=== PATIENT | female | born 1990 | race Caucasian/White ===

== ENCOUNTER → 2019-09-16 10:51 | Outpatient (CLI) | payer OTHER, SELFPAY ==
[2019-09-15 10:21] VITALS: BMI 23.8
--- NOTE | 2019-09-16 10:56 | RAD_ITS ---
STUDY: X-RAY CHEST REASON FOR EXAM: Female, 29 years old. COUGH, SOB TECHNIQUE: PA and lateral COMPARISON: None. FINDINGS: There is mild asymmetric prominence of the markings in the left lower lobe. There is no demonstrated pleural abnormality. Normal size heart. Normal mediastinum and sanchez. Normal visualized pulmonary arteries. Normal visualized aortic arch and descending thoracic aorta. Normal visualized thoracic spine. Normal visualized ribs, clavicles, and shoulders. There is no demonstrated abnormality of the visualized soft tissue structures of the upper abdomen. RAD/Chest PA and Lateral IMPRESSION: Mild asymmetric prominence of the interstitial markings in left lower lobe. Mild focal inflammatory changes not excluded. Recommend clinical correlation and follow-up Electronically Signed: Jh Barr MD at 17:15 EDT , Service support ,
== END ==
PROVIDERS: Referring Provider Nurse Practitioner Family; Visit Provider Nurse Practitioner Family
DX: Z20.828 Contact with and (suspected) exposure to other viral communicable diseases (principal); J02.9 Acute pharyngitis, unspecified; R50.9 Fever, unspecified; R06.00 Dyspnea, unspecified; R05 Cough
CPT/HCPCS: 71046

== ENCOUNTER → 2019-09-19 14:28 | Outpatient (CLI) | payer OTHER, SELFPAY ==
[2019-09-15 10:21] VITALS: BMI 23.8
--- NOTE | 2019-09-19 14:35 | RAD_ITS ---
STUDY: X-RAY CHEST REASON FOR EXAM: Female, 29 years old. F/U CHEST XRAY FROM 3 DAYS AGO. PATIENT IS DYSPNEA/SOB FEVER AND CHILLS. PATIENT STATES HAD POSITIVE STREP THROAT RESULT. TECHNIQUE: PA and lateral views of the chest. COMPARISON: September 16, 2019 FINDINGS: Small irregular infiltrate of the left lower lobe reidentified, and has slightly increased in size. The remaining bilateral lung sweeney are clear. There is no demonstrated pleural abnormality. Normal size heart. Stable visualized osseous and mediastinal structures. RAD/Chest PA and Lateral IMPRESSION: 1. Small irregular infiltrate of the left lower lobe reidentified, and has slightly increased in size. Electronically Signed: Richard Brand MD at 14:55 EDT , Service support ,
== END ==
PROVIDERS: PCP Family Medicine; Referring Provider Family Medicine; Visit Provider Family Medicine
DX: R06.00 Dyspnea, unspecified (principal)
CPT/HCPCS: 71046

== ENCOUNTER → 2019-10-01 14:45 | Outpatient (CLI) | payer OTHER, SELFPAY ==
[2019-09-15 10:21] VITALS: BMI 23.8
--- NOTE | 2019-10-01 14:47 | CT_ITS ---
STUDY: CT CHEST WITH CONTRAST REASON FOR EXAM: Female, 29 years old. ABNORMAL CHEST X-RAY RADIATION DOSAGE (If Supplied By Facility): CTDIvol = ( 8.37 ) mGy, DLP = ( 224.77 ) mGycm TECHNIQUE: Transaxial imaging was performed following intravenous administration of IV 75mL Isovue-370. Multiplanar coronal and sagittal images were reformatted. Individualized dose optimization techniques were used for this CT. COMPARISON: Comparison is made with prior chest radiograph dated September 19, 2019. FINDINGS: The lungs are normal. There is no demonstrated pleural abnormality. Normal heart and pericardium. Normal mediastinum. Normal hilar regions. Normal enhanced pulmonary arteries. Normal aorta arch and descending thoracic aorta. Normal osseous structures. There is no demonstrated abnormality of the visualized upper abdomen. CT/Chest WITH Contrast IMPRESSION: Normal enhanced CT Chest examination. Electronically Signed: Calos Taylor, at 15:15 EDT , Service support ,
== END ==
PROVIDERS: PCP Family Medicine; Referring Provider Family Medicine; Visit Provider Family Medicine
DX: R93.89 Abnormal findings on diagnostic imaging of other specified body structures (principal)
CPT/HCPCS: 71260; Q9967

== ENCOUNTER 2019-11-08 12:00 | Day surgery (SDC) | payer OTHER, SELFPAY ==
[2019-11-08 08:15] VITALS: BMI 23.8
[2019-11-08] MEDS: Lactated Ringers 1,000 ML 125 ML IV (10:00)
[2019-11-08 12:35] VITALS: BP 95/82; PULSE 62; RESP 16; TEMP 37.4; O2SAT 100; BMI 23.1
[2019-11-08] MEDS: Doxycycline 100 MG CAPSULE PO (13:02)
[2019-11-08 13:05] LABS: Mean Corp Hgb Conc 33.3 g/dL (32-36); Mean Corpuscular Hgb 27.6 pg (27.0-32.0); Mean Corpuscular Volume 82.9 fL (81-99); Platelet Count 188 K/mm3 (150-450); RBC Distribution Width CV 13.2 % (11.6-14.6); RBC Distribution Width SD 39.8 fl (35.1-43.9); Red Blood Count 4.34 M/mm3 (4.2-5.4); White Blood Count 5.6 K/mm3 (4.4-11.0)
[2019-11-08 13:45] LABS: hCG Titer Quant., Serum 31140 mIU/mL (1-3)
--- NOTE | 2019-11-08 14:34 | HP.PCM_ITS ---
- Problem List (1) Missed Status: Acute Comment: discussed options plan d and c today. last ate at 7 am. 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 she has had some nause no cramping or bleeding. diagnosed with missed ab today on ultrasound. OB Visit Comments: GS seen measuring 5w3d collapsing with large subchorionic hemorrhage. pole seen 4 mm with fht seen, large yolk sac, no doppler flow. no adnexal masses small FF in cul de sac. confirmed demise. Menstrual History Last Menstral Period: 09/09/19 Reported LMP: definite Normal amount/duration: Yes On hormonal BC at conception: No hCG+: 10/07/19 Medical History Medical History: Negative: Diabetes, Hypertension, Heart disease, Auto-immune disorder, Kidney disease/UTI, Neurologic/epilepsy, Psychiatric, D epression/ depression, Hepatitis/liver disease, Varicosities/phlebitis, Thyroid dysfunction, Trauma/domestic violence, History of blood transfusions, D (Rh) Sensitized, Pulmonary (e.g.,TB,Asthma), Seasonal allergies, Drug/latex allergies/reactions, Breast, Weapons Mechanic surgery, Operations/hospitalizations, Anesthetic complications, History of abnormal pap, Uterine anomaly/jose, Infertility, Anti-retroviral treatment, Relevant family history, Other ACOG First Trimester First Trimester: Discussed ROS Const Reports system reviewed and no additional complaints, except as docu, Reports fatigue, Denies fever(s) Eyes Reports system reviewed and no additional complaints, except as docu ENT Reports system reviewed and no additional complaints, except as docu Card Denies chest pain, Denies shortness of breath Resp Reports system reviewed and no additional complaints, except as docu, Denies cough, Denies shortness of breath GI Denies abdominal pain, Reports nausea Reports system reviewed and no additional complaints, except as docu Musc Reports system reviewed and no additional complaints, except as docu Skin/Breast Reports system reviewed and no additional complaints, except as docu Neuro Yes system reviewed and no additional complaints, except as docu Psych Reports system reviewed and no additional complaints, except as docu Endo Reports system reviewed and no additional complaints, except as docu, Reports fatigue Exam Const General: healthy appearing, comfortable, no acute distress Orientation: alert [facility] Head: normal to inspection, normocephalic, atraumatic Ears: hearing grossly normal bilaterally, external ears normal Nose: external nose normal, nares normal Mouth: oral mucosae normal Teeth and gingiva: dentition normal Eyes General: appearance normal, both eyes and all related structures Neck Neck: normal visual inspection, no lymphadenopathy, supple Thyroid: thyroid normal Chest Chest palpation & inspection: normal inspection of the chest Breast inspection: normal inspection of the breasts, normal inspection of the axillae Breast palpation: normal palpation of the breasts, normal palpation of the axillae Resp Effort & Inspection: normal respiratory effort GI Inspection: normal to inspection Palpation: soft, no hepatosplenomegaly General: bladder normal to palpation External Female Exam: normal external appearance, normal appearance of the urethra Urethra: normal appearance of the urethra Speculum Exam - Vagina: normal appearance of the vagina, normal vaginal discharge Speculum Exam - Cervix: normal appearance of the cervix Bimanual Exam- Vagina & Uterus: normal bimanual exam, bladder normal to palpation, uterus non-tender, other Bimanual Exam- Adnexa, other: adnexae non-tender Skin General: no rashes or lesions noted Neuro Motor: muscle tone normal throughout, no movement abnormalities noted Extrem General: normal to inspection, full ROM Assessment & Plan Problems 1. Missed O02.1 discussed options plan d and c today. last ate at 7 am. florentino Plan After discussing the patient's diagnosis and treatment plan options, patient wishes to proceed with surgical management. I have discussed with the patient the risks, benefits, and alternatives of the procedure which include but are not limited to risks of anesthesia, bleeding, infection, possible damage to bowel, bladder, or surrounding vasculature which could lead to additional surgery to evaluate any complications. Patient agrees to procedure and wishes to proceed. ACOG/uptodate references given for additional information regarding procedure. Orders Orders: PAP I-G w/rfx hrHPV-Aptima Today Z12.4 Coding Level of Care Code Off vis,est,level 4 Diagnoses Missed O02.1 UPDATE- I have seen the patient and performed any clinically relevant updates to the history and physical exam. Katina Francisco MD
--- NOTE | 2019-11-08 15:00 | POC_PTH ---
PATIENT: BECCA MCCLURE LOC: [facility] U#:[id number] AGE/SX: ROOM: RE11/08/[address]: Dr. Katina Francisco MD : 1990 BED: DIS: 11/08/2019 SPEC #: [id number] RECD: 11/11/19 07:44 STATUS: IVAN LORETTA #: [id number] ANDREI: 11/08/19 15:[address]: Katina Francisco DEPT: SURGICAL PATHOLOGY RECD BY: Sayra Maldonado ENTERED: 11/11/19 09:13 SP TYPE: PROD CONC OTHR DR: Dr. Christina Augustine MD Tissues: Product of conception, NOS Procedures: Surgery Specimen Level IV HEADER OPERATION: Suction dilation and curettage PRE-OP DIAGNOSIS: Missed TISSUE SUBMITTED: Products of conception MICROSCOPIC DIAGNOSIS Endometrium, curettage: Chorionic villi, decidualized stroma and trophoblastic cells consistent with products of conception. AM:annalisa 11/12/19 MICROSCOPIC DESCRIPTION Slides are reviewed. GROSS DESCRIPTION Received in fixative is one container labeled with the patient's name and designated products of conception. The specimen consists of multiple irregular fragments of light thorne soft tissue that in aggregate measure 5 x 5 x 0.6 cm. parts are not grossly recognized. Film Composer portions are submitted in one cassette. / AM:annalisa 11/11/19 TC:5 CPT: 00873
--- NOTE | 2019-11-08 16:08 | OP.PCM_ITS ---
Problem List (1) Missed Status: Acute Comment: discussed options plan d and c today. last ate at 7 am. florentino Report of Operation Date of Procedure: 11/08/19 Pre-Operative Diagnosis: missed ab Post-Operative Diagnosis: same Surgery/Procedure Performed:: d and c Description of Surgical Findings:: 10 week dilation Type of Anesthesia:: Local MAC Special Medications: none Specimen's removed: POC Drains: none Estimated Blood Loss (mL): 100 Fluids Replaced: crystalloid Description of Procedure: Patient was taken to the operating room and placed under MAC local anesthesia. She was prepped and draped in the normal sterile fashion the dorsal lithotomy position. Bladder was drained of clear urine and anterior lip of the cervix was grasped and the uterus sounded to 10 cm. Cervix was progressively dilated to allow passage of a 9 mm suction curette. Progressive passes were made removing the retained products of conception without complication. Sharp curettage c onfirmed complete removal of the retained products. All instruments were removed from the vagina and excellent hemostasis was noted and the patient was taken to recovery in stable condition. Grafts/Implants Used: none - Complications none - Admit VTE Documentation VTE Present on Admission: No VTE Mechan Device Prophylaxis: SCD's Multi Select Codes - Urinary/Genital Urinary/Genital CPT Codes: 13356 Surg Trtmt missed Ab 1TM
--- NOTE | 2019-11-08 16:10 | DCINST_ITS ---
Discharge Diet: No Restrictions Discharge Activity: Return to Normal Activity, May Shower, May Take a Tub Bath Allergies/Adverse Reactions: Allergies No Known Allergies Allergy (Verified 11/08/19 12:30) Medications to take at Discharge docosahexaenoic acid 200 mg capsule mg PO 11/08/19 Primary Care Physician: Christina Augustine MD [Primary Care Provider] - Test Results: Test results from this visit will be discussed in further detail at your follow- up appointment, if applicable. Please Follow Up With: Katina Francisco MD - [phone]
[2019-11-08 16:15] VITALS: BP 117/64; BP 98/52; PULSE 69; RESP 16; TEMP 36.2; O2SAT 100
[2019-11-08 16:20] VITALS: BP 124/76; BP 98/52; PULSE 65; RESP 16; O2SAT 100
[2019-11-08 16:25] VITALS: BP 122/70; BP 98/52; PULSE 72; RESP 16; O2SAT 100
[2019-11-08 16:35] VITALS: BP 126/84; BP 98/52; PULSE 71; RESP 16; TEMP 36.6; O2SAT 100
[2019-11-08 17:54] VITALS: BP 121/68; BP 98/52; PULSE 65; RESP 18; TEMP 36.2; O2SAT 100
== END 2019-11-08 18:10 | disposition home or self-care (01) ==
LOC: SDC 12:02 → AC 12:03
PROVIDERS: PCP Family Medicine; Referring Provider Obstetrics & Gynecology; Visit Provider Obstetrics & Gynecology
PROC: (CPT 59820; principal; 2019-11-08 14:45)
DX: O02.1 Missed abortion (principal); E07.9 Disorder of thyroid, unspecified; I10 Essential (primary) hypertension; J45.909 Unspecified asthma, uncomplicated
CPT/HCPCS: 01965; 59820; 36415; 84702; 85027; 86850; 86900; 86901; 87635; 88305; 90384; G2023; J7120; J2405; J2790; U0003

== ENCOUNTER → 2019-11-08 12:50 | Outpatient (CLI) | payer OTHER, SELFPAY ==
[2019-11-08 08:15] VITALS: BMI 23.8
[2019-11-12 20:30] LABS: HPV Reflexed? NOT INDICATED
== END ==
PROVIDERS: PCP Family Medicine; Referring Provider Obstetrics & Gynecology; Visit Provider Obstetrics & Gynecology
DX: Z12.4 Encounter for screening for malignant neoplasm of cervix (principal)
CPT/HCPCS: 88175; G0145

== ENCOUNTER → 2019-11-18 18:29 | Outpatient (CLI) | payer OTHER, SELFPAY ==
[2019-11-08 12:35] VITALS: BMI 23.1
--- NOTE | 2019-11-18 18:34 | US_ITS ---
STUDY: ULTRASOUND OF THE FEMALE PELVIS - COMPLETE REASON FOR EXAM: Female, 29 years old. Bleeding. Recent DTC. Missed . LMP: Unknown. TECHNIQUE: Transabdominal and Transvaginal TECHNICAL QUALITY: Adequate. COMPARISON: None. FINDINGS: The uterus is anteverted and is in a midline position. The uterus measures 7.6 x 4.5 x 2.9 cm. Normal uterine cervix. Uterus appears septate The endometrium measures 2 mm in thickness, and is hyperechoic. There is trace fluid within the endometrial canal. There is no demonstrated myometrial mass. I.U.D. - The patient does not have an I.U.D. The right ovary is visualized. The right ovary measures 3.5 x 2.5 x 1.8 cm. There is no 1 cm dominant follicle. There is no visualized right adnexal mass or complex lesion. There is normal arterial and normal venous vascularity. The left ovary is visualized. The left ovary measures 2.8 x 2.5 x 1.5 cm. There is no left ovarian cyst or ovarian mass. Is 1.4 x 1.0 x 0.5 cm dominant follicle. There is normal arterial and normal venous vascularity. There is no fluid in the cul-de-sac. The pre void volume of the bladder was 716 ml. The urinary bladder appears grossly normal. Polycystic ovary disease: No. US/Pelvic (Non ) IMPRESSION: 1. Septate uterus with minimal fluid in the endometrial canal. There is no other abnormality. 2. Normal ovaries. Electronically Signed: Deven Mariano DO at 22:10 EDT Tel [phone], Service support ,
--- NOTE | 2019-11-18 18:44 | US_ITS ---
STUDY: ULTRASOUND OF THE FEMALE PELVIS - COMPLETE REASON FOR EXAM: Female, 29 years old. Bleeding. Recent DTC. Missed . LMP: Unknown. TECHNIQUE: Transabdominal and Transvaginal TECHNICAL QUALITY: Adequate. COMPARISON: None. FINDINGS: The uterus is anteverted and is in a midline position. The uterus measures 7.6 x 4.5 x 2.9 cm. Normal uterine cervix. Uterus appears septate The endometrium measures 2 mm in thickness, and is hyperechoic. There is trace fluid within the endometrial canal. There is no demonstrated myometrial mass. I.U.D. - The patient does not have an I.U.D. The right ovary is visualized. The right ovary measures 3.5 x 2.5 x 1.8 cm. There is no 1 cm dominant follicle. There is no visualized right adnexal mass or complex lesion. There is normal arterial and normal venous vascularity. The left ovary is visualized. The left ovary measures 2.8 x 2.5 x 1.5 cm. There is no left ovarian cyst or ovarian mass. Is 1.4 x 1.0 x 0.5 cm dominant follicle. There is normal arterial and normal venous vascularity. There is no fluid in the cul-de-sac. The pre void volume of the bladder was 716 ml. The urinary bladder appears grossly normal. Polycystic ovary disease: No. US/Transvaginal Non- IMPRESSION: 1. Septate uterus with minimal fluid in the endometrial canal. There is no other abnormality. 2. Normal ovaries. Electronically Signed: Deven Mariano DO at 22:10 EDT Tel [phone], Service support ,
== END ==
PROVIDERS: PCP Family Medicine; Visit Provider Obstetrics & Gynecology
DX: O02.1 Missed abortion (principal); Q51.20 Other doubling of uterus, unspecified
CPT/HCPCS: 76830; 76856

== ENCOUNTER → 2019-12-09 16:58 | Outpatient (CLI) | payer OTHER, SELFPAY ==
[2019-12-09 17:25] LABS: Absolute Lymphocyte Count 1.68 X10^3/uL (0.83-4.51); Absolute Neutrophil Count 3.4 X10^3/uL (2.0-7.7); Basophil# 0.02 X10^3/uL; Basophil% 0.3 % (0-1); Eosinophil# 0.12 X10^3/uL; Eosinophils% 2.1 % (0-5); Hematocrit 39.4 % (37-47); Lymphocyte # 1.68 X10^3/ul (4.0); Lymphocyte % 29.3 % (19-41); Mean Corpuscular Hgb 26.7 pg (27.0-32.0); Mean Corpuscular Volume 80.9 fL (81-99); Monocyte# 0.55 X10^3/uL; Monocyte% 9.6 % (0-10); NRBC Flagged by Analyzer 0 % (0-5); Neutrophil # 3.35 X10^3/uL (2.7-7.7); Neutrophil % 58.4 % (47-70); Platelet Count 209 K/mm3 (150-450); RBC Distribution Width CV 13.6 % (11.6-14.6); Red Blood Count 4.87 M/mm3 (4.2-5.4); White Blood Count 5.7 K/mm3 (4.4-11.0)
[2019-12-09 18:01] LABS: hCG Titer Quant., Serum 3 mIU/mL (1-3)
== END ==
PROVIDERS: PCP Family Medicine; Referring Provider Obstetrics & Gynecology; Visit Provider Obstetrics & Gynecology
DX: O02.1 Missed abortion (principal); Z3A.00 Weeks of gestation of pregnancy not specified
CPT/HCPCS: 36415; 84702; 85025

== ENCOUNTER → 2019-12-17 14:49 | Outpatient (CLI) | payer OTHER, SELFPAY ==
[2019-12-12 16:08] VITALS: BMI 23.1
--- NOTE | 2019-12-17 14:50 | US_ITS ---
SONOHYSTEROGRAPHY Exam reason: Infertility Preprocedure transabdominal ultrasound evaluation was performed for assessment of anatomy and possible pathology. Performing physician: Dr. Francisco Procedure: The patient was supine on the table and legs in stirrups in a slight Trendelenburg position. The outer skin of the vagina and perineum were cleansed with sterile Betadine solution. This was followed by placement of a sterile speculum partially coated with Betadine petroleum jelly into the vagina and positioned to view the external cervical os on end. The internal linings of the cervix and vagina were cleansed with sterile Betadine solution again. The cervical opening was cannulated. The balloon was inflated once inside the uterine cavity and secured against the internal cervical os. This was followed by injection of normal saline into the endometrial cavity and the cervical canal. The endovaginal probe was inserted by the radioisotope technologist and multiple images were acquired. All elements of maximal sterile barrier technique were followed, to include US elements as applicable Comparison study: Pelvic ultrasound dated November 18, 2019 Findings: The uterus is septated. The uterus fills normally, with no evidence of contour abnormality, filling defect, septum, stricture, or mass. The endometrial lining is normal in appearance without the thickening or nodularity. The endometrial echo is striated and measures 5.4 mm. Cervical lining is also normal in appearance. No evidence of uterine or cervical masses demonstrated. US/SIS-SALINE INF SONOHYSTEROGRAM IMPRESSION: 1. Status post sonohysterogram of the uterus. 2. No demonstrated endometrial filling defect or uterine mass. Electronically Signed: Richard Brand MD at 20:10 EDT , Service support ,
== END ==
LOC: RAD 14:50 → US 14:53
PROVIDERS: PCP Family Medicine; Referring Provider Obstetrics & Gynecology; Visit Provider Obstetrics & Gynecology
DX: Z31.41 Encounter for fertility testing (principal)
CPT/HCPCS: 58340; 76831

== ENCOUNTER → 2019-12-30 09:59 | Outpatient (CLI) | payer OTHER, SELFPAY ==
[2019-12-12 16:08] VITALS: BMI 23.1
[2019-12-30 12:19] LABS: Thyroid Stim Hormone (TSH) 1.22 uIU/mL (0.358-3.74)
[2019-12-30 12:22] LABS: Rubella IgG 43.2 IU/mL
[2020-01-01 04:29] LABS: V-Zoster IgG (Immunity) 653 index (Immune >165)
== END ==
PROVIDERS: PCP Family Medicine; Referring Provider Obstetrics & Gynecology Reproductive Endocrinology; Visit Provider Obstetrics & Gynecology Reproductive Endocrinology
DX: Z01.83 Encounter for blood typing (principal); E02 Subclinical iodine-deficiency hypothyroidism; Z11.59 Encounter for screening for other viral diseases; Z11.8 Encounter for screening for other infectious and parasitic diseases
CPT/HCPCS: 36415; 84443; 86762; 86787; 86900; 86901

== ENCOUNTER → 2020-05-13 11:56 | Outpatient (CLI) | payer OTHER, SELFPAY ==
[2019-12-12 16:08] VITALS: BMI 23.1
[2020-05-13 15:21] LABS: hCG Titer Quant., Serum 1381 mIU/mL (1-3)
== END ==
PROVIDERS: PCP Family Medicine; Referring Provider Obstetrics & Gynecology Reproductive Endocrinology; Visit Provider Obstetrics & Gynecology Reproductive Endocrinology
DX: Z32.01 Encounter for pregnancy test, result positive (principal); E28.2 Polycystic ovarian syndrome
CPT/HCPCS: 36415; 84702

== ENCOUNTER → 2020-05-15 09:57 | Outpatient (CLI) | payer OTHER, SELFPAY ==
[2019-12-12 16:08] VITALS: BMI 23.1
[2020-05-15 11:18] LABS: hCG Titer Quant., Serum 3044 mIU/mL (1-3)
== END ==
PROVIDERS: PCP Family Medicine; Referring Provider Obstetrics & Gynecology Reproductive Endocrinology; Visit Provider Obstetrics & Gynecology Reproductive Endocrinology
DX: E28.2 Polycystic ovarian syndrome (principal); Z32.01 Encounter for pregnancy test, result positive
CPT/HCPCS: 36415; 84702

== ENCOUNTER 2020-06-17 15:18 | Emergency (ER) | payer OTHER, SELFPAY ==
[2019-12-12 16:08] VITALS: BMI 23.1
[2020-06-17 15:19] VITALS: BP 121/82; PULSE 86; PULSE 88; RESP 18; TEMP 36.7; O2SAT 98; BMI 25.2
--- NOTE | 2020-06-17 15:42 | ED.VIS.GEN ---
History of Present Illness Chief Complaint: Dizziness Informant: Patient, Significant Other Onset: Hours Context: Sudden Onset Timing: Intermittent Quality: Spinning sensation Location: Home Current Severity: - - No spitting with eyes Lids closed Maximum Severity: Severe - If patient opens eyelids and especially change in position Worsened by: Movement Relieved by: Nothing completely Associated Symptoms: Nausea and vomiting Narrative: Patient is a 29-year-old Ab2 (spontaneous) female who had surgery January 2024 uterine septum. She was seen by Dr. Eaton. She is presently under the care of Dr. Eaton. She states this morning she awoke to use the restroom. She felt slightly dizzy when she returned to bed. She has had several episodes of spinning when she opens her eyes and moves. This is associated with nausea and vomiting. She does report dry mouth and would like something to drink. She denies headache, double vision, blurred vision or loss of vision. She denies rhinorrhea, congestion postnasal drainage. She denies sore throat. She denies decreased hearing or ringing in her ears. She denies chest pain or shortness of breath. She denies blood in her emesis. She does have frequency without urgency or hematuria. There is no dysuria. She denies vaginal bleeding. She denies problems with her balance prior to the spinning sensation. She is on vitamins. She is on no other medication. Prior similar symptoms: No Recent Illness/Hospitalization: No - Past Medical History (1) Uterine anomaly Status: Acute Comment: suspect septum recommend SIS Past Medical History - Allergies and Home Meds Allergies/Adverse Reactions: Allergies No Known Allergies Allergy (Verified 06/17/20 15:53) Primary Care Physician: Christina Augustine MD [Primary Care Provider] - Prior records reviewed: Yes Surgical History: - - Removal septum uterus Lives: Spouse/ Significant Other Smoking Status: Never smoker Alcohol: Rare Drugs: None Review of Systems General: Denies: Chills, Fever, Malaise Eyes: Denies: Visual changes - bilaterally, Blurred Vision - bilaterally, Diplopia ENT: Denies: Rhinorrhea, Sore throat Cardiovascular: Denies: Chest pain, Palpitations Respiratory: Denies: Dyspnea, Cough, Dyspnea on exertion Gastrointestinal: Reports: Nausea, Vomiting. Denies: Abdominal pain, Diarrhea Genitourinary: Reports: Frequency. Denies: Dysuria, Hematuria Musculoskeletal: Denies: Myalgias, Arthralgias, Neck pain, Back pain Skin: Denies: Rash, Wounds Neurological: Denies: Headache, Weakness Endocrine: Denies: Polyuria, Polydipsia Physical Exam Vital Signs/Narrative: Vital Signs Temp Pulse Resp BP Pulse Ox 06/17/20 15:19 98.0 F 88 18 121/82 H 98 Inital Vital Signs reviewed: Yes General: Well nourished, Well developed, No Acute Distress Head: Normocephalic, Atraumatic Eyes: Perrl, EOMI ENT: Moist mucous membranes, No rhinorrhea, - - Abnormal eye movement even with eyes closed. Opening her eye lids reveals mild nystagmus at this time. There is no evidence of cerumen impaction. Neck: Supple, Nontender Cardiovascular: Regular rate, Regular rhythm, No murmurs, Normal S1, Normal S2 Respiratory: No distress, CTA bilaterally, Chest nontender Abdomen: Soft, Nontender, Nondistended, Normal bowel sounds Back: Nontender, Normal Inspection Extremities: Nontender, No edema Skin: Normal color, No rash Neurological: Alert, Oriented x3, Cranial nerves II-XII grossly intact, Normal Strength, Normal Sensation, Normal DTR, - - Cerebellar testing normal. Psychological: Normal affect, Normal Mood Diagnostic/Tx/Re-eval - Medical Decision Making Since history is suggestive of benign paroxysmal positional vertigo. Patient was medicated with IV Zofran. Will perform Alvin-Hallpike maneuver and if this reproduces her symptoms and there is nystagmus will perform Shira maneuver. Alvin-Hallpike maneuver was performed. Patient had nystagmus with initial upward deflection and horizontal deflection to the right. Her symptoms were worse with her head turned to the left. Shira maneuver was performed. Patient states if she lifted her left ankle only when she was in upright position she had mild vertigo. Patient was ambulated by nurse. She developed acute vertigo when she turned rapidly. Since benzodiazepines are considered category D and unsafe in we will treat with Antivert/meclizine which is safe in . ED Disposition - Plan for ED Patient: Disposition: Home or Assisted Living Diagnosis: Benign paroxysmal positional vertigo of left ear Instructions: ED BPV Vertigo Prescriptions: Meclizine HCl [Antivert] 25 mg PO TID #14 tab Transmission Status: Pending to [facility] Referrals: Christina Augustine MD [Primary Care Provider] - 3-5 Days if not improving
[2020-06-17] MEDS: Ondansetron 4 MG/2 ML Vial IV (15:52)
[2020-06-17] MEDS: Meclizine HCl 25 MG Tablet PO (17:02)
== END 2020-06-17 18:39 | disposition home or self-care (01) ==
PROVIDERS: Emergency Provider Emergency Medicine; PCP Family Medicine
DX: H81.12 Benign paroxysmal vertigo, left ear (principal); Q51.28 Other and unspecified doubling of uterus
CPT/HCPCS: 96374; 99284; A4216; J2405

== ENCOUNTER → 2020-07-31 16:57 | Outpatient (CLI) | payer OTHER, SELFPAY ==
[2020-07-31 14:20] VITALS: BMI 26.9
== END ==
PROVIDERS: PCP Family Medicine; Visit Provider Obstetrics & Gynecology
DX: O26.899 Other specified pregnancy related conditions, unspecified trimester (principal); R10.2 Pelvic and perineal pain; Z3A.00 Weeks of gestation of pregnancy not specified
CPT/HCPCS: 87070; 87086; 87088; 87205

== ENCOUNTER → 2020-08-14 17:34 | Outpatient (CLI) | payer OTHER, SELFPAY ==
[2020-08-14 16:11] VITALS: BMI 27.0
[2020-08-14 18:09] LABS: Glucose Challenge Gest 1H 50g 97 mg/dL (70-140)
== END ==
PROVIDERS: PCP Family Medicine; Visit Provider Obstetrics & Gynecology
DX: Z34.80 Encounter for supervision of other normal pregnancy, unspecified trimester (principal)
CPT/HCPCS: 36415; 82950

== ENCOUNTER → 2020-09-22 14:48 | Outpatient (CLI) | payer OTHER, SELFPAY ==
[2020-08-14 16:11] VITALS: BMI 27.0
[2020-09-11 10:25] VITALS: BMI 27.0
--- NOTE | 2020-09-22 14:49 | US_ITS ---
STUDY: SECOND AND THIRD TRIMESTER OBSTETRICAL ULTRASOUND REASON FOR EXAM: Female, 30 years old anatomy LMP: 04/14/2020. TECHNIQUE: Transabdominal and Transvaginal TECHNICAL QUALITY: Adequate. PRIOR ULTRASOUND: None. FINDINGS: There is a single intrauterine fetus. The fetus is in a variable presentation. There is demonstrated cardiac activity with a heart rate of 144 bpm. There is a normal amniotic fluid volume. The largest amniotic fluid pocket measures 2.5 cm x 5.1 cm. The amniotic fluid index (YANY) is within normal limits. The placenta is posterior in location and is not low lying. There are Grade 0 placental changes. The cervix measures 4.2 cm in length. The bilateral adnexal regions are normal. BIOMETRY: BPD: 5.18 cm: 21 weeks, 5 days HC: 20.84 cm: 22 weeks, 6 days AC: 19.27 cm: 23 weeks, 6 days FL: 4.28 cm: 23 weeks, 6 days CI: 68% FL/BPD: 83% FL/HC: FL/AC: 22% HC/AC: 1.08 age by current US: 22 weeks, 6 days. SOLEDAD by current US: 01/20/2021. Estimated weight: 621 grams, +/- 93 grams, 76 %. Age by LMP: 23 weeks, 0 days. SOLEDAD by LMP: 01/19/2021. ANATOMY: Gender: Female Cranium: Normal lateral ventricles. Normal choroid plexus. Normal cerebellum. Normal cisterna magna. Normal face, nose and lips. Chest: Normal 4-chamber heart. Abdomen/Pelvis: Normal diaphragm. Normal stomach. Normal abdominal wall. Normal cord insertion. Normal 3 vessel cord. Normal kidneys. Normal bladder. Spine: Normal cervical spine. Normal thoracic spine. Suboptimal imaging of the lumbar spine and sacrum due to positioning. Extremities: Normal bilateral upper extremities. Normal bilateral lower extremities. US/OB Anatomy Scan IMPRESSION: Single live uterine gestation with a mean gestational age of 22 weeks and 6 days. Suboptimal imaging of the lumbar spine and sacrum due to positioning. Electronically Signed: Calos Taylor MD at 10:32 EDT , Service support ,
== END ==
PROVIDERS: PCP Family Medicine; Referring Provider Obstetrics & Gynecology; Visit Provider Obstetrics & Gynecology
DX: Z34.80 Encounter for supervision of other normal pregnancy, unspecified trimester (principal)
CPT/HCPCS: 76805; 76817

== ENCOUNTER → 2020-10-09 13:15 | Outpatient (CLI) | payer OTHER, SELFPAY ==
[2020-10-09 10:04] VITALS: BMI 27.0
[2020-10-09 13:42] LABS: Amphetamine Urine VISTA NEGATIVE (<1000 ng/mL); Barbiturate Urine VISTA NEGATIVE (< 200 ng/mL); Benzodiazepine Urine VISTA NEGATIVE (< 200 ng/mL); Cocaine Urine VISTA NEGATIVE (< 300 ng/mL); Ecstacy Urine VISTA NEGATIVE (< 500 ng/mL); Methadone Urine VISTA NEGATIVE (< 300 ng/mL); PCP Urine VISTA NEGATIVE (< 25 ng/mL); THC Urine VISTA NEGATIVE (< 50 ng/mL); Vista UDS pH Range 7
== END ==
PROVIDERS: PCP Family Medicine; Visit Provider Obstetrics & Gynecology
DX: Z34.80 Encounter for supervision of other normal pregnancy, unspecified trimester (principal)
CPT/HCPCS: 80307

== ENCOUNTER → 2020-10-13 11:11 | Outpatient (CLI) | payer OTHER, SELFPAY ==
[2020-10-13 10:52] VITALS: BMI 27.0
[2020-10-13 11:38] LABS: Absolute Lymphocyte Count 0.93 X10^3/uL (0.83-4.51); Absolute Neutrophil Count 8.3 X10^3/uL (2.0-7.7); Basophil# 0.02 X10^3/uL; Basophil% 0.2 % (0-1); Eosinophil# 0.07 X10^3/uL; Eosinophils% 0.7 % (0-5); Hemoglobin 11.2 g/dL (12.0-15.0); Lymphocyte # 0.93 X10^3/ul (0.83-4.51); Lymphocyte % 9.1 % (19-41); Mean Corp Hgb Conc 32.9 g/dL (32-36); Mean Corpuscular Hgb 27.1 pg (27.0-32.0); Mean Corpuscular Volume 82.3 fL (81-99); Mean Platelet Vol. 9.6 fl (6.2-12.0); Monocyte% 6.8 % (0-10); NRBC Flagged by Analyzer 0 % (0-5); Neutrophil # 8.34 X10^3/uL (2.7-7.7); Neutrophil % 81.6 % (47-70); Platelet Count 233 K/mm3 (150-450); RBC Distribution Width CV 13.6 % (11.6-14.6); RBC Distribution Width SD 40.5 fl (35.1-43.9); Red Blood Count 4.13 M/mm3 (4.2-5.4); White Blood Count 10.2 K/mm3 (4.4-11.0)
[2020-10-13 12:05] LABS: ALB/GLOB Ratio 0.8 RATIO (0.9-2.4); AST(SGOT) 16 U/L (15-37); Alanine Aminotransfer ALT/SGPT 22 U/L (13-56); Alkaline Phosphatase 65 U/L (45-117); Anion Gap 5 (5-15); BUN 7 mg/dL (7-18); BUN/Creat Ratio 13.9 RATIO (10-20); Calcium,Total 9.2 mg/dL (8.5-10.1); Chloride 108 mmol/L (98-107); EST Glomerular Filtration Rate 154 mL/min (>60); Est Glom Filt Rate - Afr Amer 186 mL/min (>60); Globulin 3.7 g/dL (2.2-4.2); Glucose 83 mg/dL (74-106); Potassium 3.8 mmol/L (3.5-5.1); Protein, Total 6.7 g/dL (6.4-8.2); Sodium Level 139 mmol/L (136-145)
== END ==
PROVIDERS: PCP Family Medicine; Referring Provider Nurse Practitioner Women's Health; Visit Provider Nurse Practitioner Women's Health
DX: Z34.92 Encounter for supervision of normal pregnancy, unspecified, second trimester (principal); Z3A.25 25 weeks gestation of pregnancy
CPT/HCPCS: 36415; 80053; 85025

== ENCOUNTER → 2020-10-16 13:23 | Outpatient (CLI) | payer OTHER, SELFPAY ==
[2020-09-11 10:25] VITALS: BMI 27.0
[2020-10-13 10:52] VITALS: BMI 27.0
--- NOTE | 2020-10-16 13:25 | US_ITS ---
STUDY: SECOND AND THIRD TRIMESTER OBSTETRICAL ULTRASOUND - LIMITED REASON FOR EXAM: Female, 30 years old FU anatomy LMP: 04/14/2020. PRIOR ULTRASOUND: Comparison is made with prior study dated 09/22/2020. TECHNIQUE: Transabdominal TECHNICAL QUALITY: Adequate. FINDINGS: There is a single intrauterine fetus. The fetus is in a breech presentation. There is demonstrated cardiac activity with a heart rate of 144 bpm. There is a normal amniotic fluid volume. The largest amniotic fluid pocket measures 4.1 cm. The amniotic fluid index (YANY) is 13.9 cm. The placenta is fundal and posterior in location. There are Grade 0 placental changes. BIOMETRY: Age by LMP: 26 weeks, 3 days. SOLEDAD by LMP: 01/19/2021. The lumbar spine and sacrum were well visualized at this time. Gender: Female US/OB Limited (No Biometrics) IMPRESSION: Unremarkable appearance of the lumbar spine and sacrum. Electronically Signed: Calos Taylor MD at 15:40 EDT , Service support ,
== END ==
PROVIDERS: PCP Family Medicine; Referring Provider Obstetrics & Gynecology; Visit Provider Obstetrics & Gynecology
DX: O32.1XX0 Maternal care for breech presentation, not applicable or unspecified (principal); Z3A.17 17 weeks gestation of pregnancy
CPT/HCPCS: 76815

== ENCOUNTER → 2020-10-30 09:20 | Outpatient (CLI) | payer OTHER, SELFPAY ==
[2020-10-13 10:52] VITALS: BMI 27.0
[2020-10-30 10:08] LABS: Absolute Lymphocyte Count 0.86 X10^3/uL (0.83-4.51); Absolute Neutrophil Count 8.2 X10^3/uL (2.0-7.7); Basophil# 0.02 X10^3/uL; Basophil% 0.2 % (0-1); Eosinophil# 0.11 X10^3/uL; Eosinophils% 1.1 % (0-5); Hematocrit 32.3 % (37-47); Hemoglobin 10.8 g/dL (12.0-15.0); Lymphocyte # 0.86 X10^3/ul (0.83-4.51); Lymphocyte % 8.5 % (19-41); Mean Corp Hgb Conc 33.4 g/dL (32-36); Mean Corpuscular Hgb 27.3 pg (27.0-32.0); Mean Corpuscular Volume 81.8 fL (81-99); Mean Platelet Vol. 9.7 fl (6.2-12.0); Monocyte# 0.65 X10^3/uL; Monocyte% 6.4 % (0-10); NRBC Flagged by Analyzer 0 % (0-5); Neutrophil # 8.22 X10^3/uL (2.7-7.7); Neutrophil % 81.6 % (47-70); Platelet Count 229 K/mm3 (150-450); RBC Distribution Width CV 13.3 % (11.6-14.6); RBC Distribution Width SD 39.8 fl (35.1-43.9); Red Blood Count 3.95 M/mm3 (4.2-5.4); White Blood Count 10.1 K/mm3 (4.4-11.0)
[2020-10-30 10:46] LABS: Glucose Challenge Gest 1H 50g 104 mg/dL (70-140)
[2020-10-31 14:07] LABS: HCV Quant. RNA PCR HCV Not Detected IU/mL (.)
== END ==
PROVIDERS: Obstetrics & Gynecology; PCP Family Medicine; Referring Provider Obstetrics & Gynecology; Visit Provider Obstetrics & Gynecology
DX: O23.42 Unspecified infection of urinary tract in pregnancy, second trimester (principal); Z13.1 Encounter for screening for diabetes mellitus; Z3A.17 17 weeks gestation of pregnancy
CPT/HCPCS: 36415; 82950; 85025; 86850; 86900; 86901; 87086; 87088; 87522

== ENCOUNTER 2020-12-14 21:25 | Outpatient (CLI) | payer OTHER, SELFPAY ==
[2020-12-11 10:03] VITALS: BMI 30.1
[2020-12-14 21:38] VITALS: BP 125/65; TEMP 36.8; O2SAT 98
[2020-12-14 21:39] VITALS: PULSE 75; O2SAT 100
[2020-12-14 21:44] VITALS: PULSE 81; O2SAT 100
[2020-12-14 21:46] VITALS: BMI 31.8
[2020-12-14 21:49] VITALS: PULSE 83; O2SAT 100
--- NOTE | 2020-12-14 22:00 | OB.TRI.PN_ITS ---
Progress Notes Date of Service: 12/14/20 Progress Note: Patient presents for triage evaluation secondary to dizziness and vomitng FHT: 130 Moderate variability reactive no decelerations category I tracing [place]: irregular Contractions Assessment and plan: nausea vomiting dizziness given meclizine Reactive NST, re assuring maternal and status patient discharged to home to follow-up as scheudled. See problem list details for additional plan information. Charges/Coding Procedures Urinary/Genital 52xxx-59xxx: 61151-72 non-stress test Interp Assessment & Plan (1) Dizziness:
--- NOTE | 2020-12-14 22:00 | OB.TRI.PN ---
Progress Notes Date of Service: 12/14/20 Progress Note: Patient presents for triage evaluation secondary to dizziness and vomitng FHT: 130 Moderate variability reactive no decelerations category I tracing [place]: irregular Contractions Assessment and plan: nausea vomiting dizziness given meclizine Reactive NST, reassuring maternal and status patient discharged to home to follow-up as scheudled. See problem list details for additional plan information. Charges/Coding Procedures Urinary/Genital 52xxx-59xxx: 99197-22 non-stress test Interp Assessment & Plan (1) Dizziness:
[2020-12-14] MEDS: Meclizine HCl 25 MG Tablet PO (22:21)
[2020-12-14 22:30] LABS: Mucous, Urine 0 SEEN /hpf (<or=2+); Red Blood Cells-Urine 0 SEEN /hpf (0-5); White Blood Cells 0 SEEN /hpf (0-5)
[2020-12-14 22:35] LABS: Color, Urine Yellow (Yellow); Glucose, Dipstick Normal (Normal); Ketone-Dipstick 5 mg/dl (Negative); Leukocyte Esterase-Dipstick Negative /ul (Negative); Nitrite-Dipstick Negative (Negative); Occult Blood-Urine Negative /ul (Negative); Protein-Dipstick Negative (Negative); Specific Gravity, Urine 1.015 (1.002-1.030); Urine Bilirubin Dipstick Negative (Negative); Urine Clarity Sl. Cloudy (Clear); Urine Urobilinogen Normal (Normal)
[2020-12-14 22:40] LABS: Bacteria 1+ /hpf (None Seen); Squamous Epithelial Cells - UA 0-5 SEEN /hpf (5-10)
[2020-12-15] MEDS: Dextrose 5%-Lactated Ringers 1,000 ML 999 ML IV (00:10)
[2020-12-15] MEDS: Ondansetron 4 MG/2 ML Vial IV (00:18)
[2020-12-15] MEDS: 0.9% Saline Lock 10 ML Syringe IV (00:18)
[2020-12-15 00:24] VITALS: BP 120/59; PULSE 71; TEMP 36.6; O2SAT 98
[2020-12-15] MEDS: proMETHazine 25 MG Tablet PO (01:41)
[2020-12-15 01:50] LABS: Hematocrit 34.7 % (37-47); Hemoglobin 11.4 g/dL (12.0-15.0); Mean Corp Hgb Conc 32.9 g/dL (32-36); Mean Corpuscular Hgb 27.5 pg (27.0-32.0); Mean Corpuscular Volume 83.6 fL (81-99); Mean Platelet Vol. 10.1 fl (6.2-12.0); Platelet Count 201 K/mm3 (150-450); RBC Distribution Width SD 42.7 fl (35.1-43.9); Red Blood Count 4.15 M/mm3 (4.2-5.4); White Blood Count 13.5 K/mm3 (4.4-11.0)
[2020-12-15 02:04] LABS: Anion Gap 9 (5-15); BUN 6 mg/dL (7-18); Calcium,Total 8.8 mg/dL (8.5-10.1); Chloride 108 mmol/L (98-107); Creatinine, Serum 0.33 mg/dL (0.55-1.02); EST Glomerular Filtration Rate 248 mL/min (>60); Est Glom Filt Rate - Afr Amer 300 mL/min (>60); Estimated Creatinine Clearance 246.81 ml/min; Glucose 86 mg/dL (74-106); Potassium 3.2 mmol/L (3.5-5.1); Sodium Level 139 mmol/L (136-145)
[2020-12-15] MEDS: Potassium Chloride Oral Tablet 20 MEQ 40 MEQ PO (02:33)
== END 2020-12-15 03:05 | disposition home or self-care (01) ==
LOC: WPOUT 21:31 → WP 21:32
PROVIDERS: PCP Family Medicine; Visit Provider Obstetrics & Gynecology
DX: O26.899 Other specified pregnancy related conditions, unspecified trimester (principal); R11.2 Nausea with vomiting, unspecified; R42 Dizziness and giddiness; Z3A.00 Weeks of gestation of pregnancy not specified
CPT/HCPCS: 96361 ×3; 96374; 36415; 59025; 59050; 80048; 81001; 85027; 87086; 87088; A4216; J2405

== ENCOUNTER → 2020-12-21 09:38 | Outpatient (CLI) | payer OTHER, SELFPAY ==
[2020-12-21 09:45] VITALS: BP 127/73; PULSE 102; RESP 16; TEMP 37.3; O2SAT 97; BMI 31.6
[2020-12-21] MEDS: Dextrose 5%-Lactated Ringers 1,000 ML 999 ML IV (10:08)
[2020-12-21] MEDS: Ondansetron 4 MG/2 ML Vial IV (10:15)
[2020-12-21 11:23] VITALS: BP 124/57; PULSE 79; RESP 16; O2SAT 100
== END ==
PROVIDERS: PCP Family Medicine; Referring Provider Nurse Practitioner Women's Health; Visit Provider Nurse Practitioner Women's Health
DX: E86.0 Dehydration (principal)
CPT/HCPCS: 96361; 96374; A4216; J2405

== ENCOUNTER → 2020-12-25 13:04 | Outpatient (CLI) | payer OTHER, SELFPAY | PROVIDERS: PCP Family Medicine; Visit Provider Obstetrics & Gynecology | DX: Z34.80 Encounter for supervision of other normal pregnancy, unspecified trimester (principal) | CPT/HCPCS: 87081 ==

== ENCOUNTER → 2021-01-01 16:41 | Outpatient (CLI) | payer OTHER, SELFPAY | PROVIDERS: PCP Family Medicine; Visit Provider Obstetrics & Gynecology | DX: O26.899 Other specified pregnancy related conditions, unspecified trimester (principal); R10.2 Pelvic and perineal pain; Z3A.00 Weeks of gestation of pregnancy not specified | CPT/HCPCS: 87086; 87088 ==

== ENCOUNTER 2021-01-19 23:45 | Inpatient (IN) | payer OTHER, SELFPAY ==
[2021-01-19 23:20] VITALS: BP 110/56; PULSE 73; O2SAT 83; O2SAT 99
[2021-01-19 23:23] VITALS: BMI 32.1
[2021-01-19 23:33] VITALS: PULSE 65; O2SAT 99
[2021-01-19 23:38] VITALS: PULSE 73; O2SAT 98
[2021-01-19 23:44] LABS: ROM Internal Control Test YES-OK TO RESULT pt. (Internal QC)
[2021-01-19 23:46] LABS: ROM Patient Test POSITIVE (Negative)
[2021-01-20] VITALS (29 sets, daily range): BP systolic 122–144; BP diastolic 55–83; PULSE 62–95; RESP 16–22; TEMP 35.8–37.1; O2SAT 83–99
[2021-01-20] MEDS: 0.9% Saline Lock 10 ML Syringe IV (01:01)
[2021-01-20 01:07] LABS: Absolute Lymphocyte Count 1.01 X10^3/uL (0.83-4.51); Absolute Neutrophil Count 11.1 X10^3/uL (2.0-7.7); Basophil# 0.02 X10^3/uL; Basophil% 0.2 % (0-1); Eosinophil# 0.02 X10^3/uL; Eosinophils% 0.2 % (0-5); Hematocrit 39.5 % (37-47); Hemoglobin 12.8 g/dL (12.0-15.0); Lymphocyte # 1.01 X10^3/ul (0.83-4.51); Lymphocyte % 7.8 % (19-41); Mean Corp Hgb Conc 32.4 g/dL (32-36); Mean Corpuscular Volume 83.3 fL (81-99); Mean Platelet Vol. 10.7 fl (6.2-12.0); Monocyte# 0.68 X10^3/uL; Monocyte% 5.2 % (0-10); NRBC Flagged by Analyzer 0 % (0-5); Neutrophil # 11.13 X10^3/uL (2.7-7.7); Neutrophil % 85.6 % (47-70); Platelet Count 255 K/mm3 (150-450); RBC Distribution Width CV 13.9 % (11.6-14.6); RBC Distribution Width SD 42.5 fl (35.1-43.9); Red Blood Count 4.74 M/mm3 (4.2-5.4)
--- NOTE | 2021-01-20 05:18 | HP.PCM.OB_ITS ---
HPI - General General Date of Admission: 01/19/21 HPI Narrative BECCA MCCLURE, is a 30 F G3, P0 at 40 weeks gestation who presents in active labor Maternal Data Information SOLEDAD Calculator Estimated Delivery Date Method Current WG Current Estimate 01/19/21 LMP (Certain) 40w 1d PFSH PFS Medical History (Updated 01/20/21 @ 05:[address] 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 Smoking Status: Never smoker alcohol intake: never details: not since substance use type: does not use caffeine: Yes what type of physical activity do you participate in: yoga and other details: volleyball frequency: 3-4 times per week seatbelt use: always do you feel safe at home: Yes additional social history: - [facility]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 [employer] History 3 Elective abortions Hx Para 0 Spontaneous abortions Hx # Term Pregnancies Ectopic pregnancies Hx # Pregnancies Multiple births # of living children Visit Details Expected Delivery Route/Plan Labor Preferences- labor support person: Thomas labor intervention preferences: britany method, declines eye ointment and hep B vaccine, hep lock in labor, intermittent monitoring if possible pain management options preferred: minimal intervention cut cord/dad catch: yes : yes PP control planned: [] discussed possible routes of delivery and associated risks: discussed possible delivery modalities and possible indications for each including R/B/A of , VAVD, FAVD, and CS. questions answered. special requests: [] Plans covid status: non immune flu vaccine: given tdap vaccine: considering rhogam: given LARC form signed: declined movement and labor precautions reviewed. Problem list reviewed and updated with the most current plan of care details and appropriate orders placed. Relevant counseling for the gestational age provided. Continue routine care and follow up unless otherwise noted in visit notes/problem list details OB Flowsheet Initial Weight: 155 lb Date -?-?-?-?-?-?-?-?-?-?-?-?- EGA Weight BP Urine Prot -?-?-?-?-?-?-?-?-?-?-?-?- Glucose FHR FuHt Pres Dilation -?-?-?-?-?-?-?-?-?-?-?-?- Effaced St Visit Note 07/17/20 -?-?-?-?-?-?-?-?-?-?-?-?- 13w 3d 169 lb (+14 lb) 134/80 -?--?-?-?-?-?-?-?-?-?-?-?- 165 -?-?-?-?-?-?-?-?-?-?-?-?- SM- no vb crampi ng, SHOLA RGI 07/31/20 -?-?-?-?-?-?-?-?-?-?-?-?- 15w 3d 172 lb (+17 lb) 130/78 Negative -?-?-?-?-?-?-?-?-?-?-?-?- Negative 150 0 -?-?-?-?-?-?-?-?-?-?-?-?- GP - work in for cramping and discharge after sex. UA done. Cervix closed. Discharge minimal. Reassurance provided. 08/14/20 -?-?-?-?-?-?-?-?-?-?-?-?- 17w 3d 172 lb 8 oz (+17 lb 8 oz) 132/60 Negative -?-?-?-?-?-?-?-?-?-?-?-?- Negative 150 -?-?-?-?-?-?-?-?-?-?-?-?- GP - no LOF, VB, DFM, ctx. Having headaches and not feeling well after eating sugary foods. Very worried about having gestational diabetes. 1h GCT done today. Aware will have to repeat at 24-28w if abnormal. 09/11/20 -?-?-?-?-?-?-?-?-?-?-?-?- 21w 3d 180 lb (+25 lb) 122/84 Negative -?-?-?-?-?-?-?-?-?-?-?-?- Negative 145 -?-?-?-?-?-?-?-?-?-?-?-?- SM- no vb crampi ng 10/09/20 -?-?-?-?-?-?-?-?-?-?-?-?- 25w 3d 185 lb 6 oz (+30 lb 6 oz) 118/78 Negative -?-?-?-?-?-?-?-?-?-?-?-?- Negative 140 25 Cephalic -?-?-?-?-?-?-?-?-?-?-?-?- GP - no LOF, VB, DFM, ctx. Having a girl! 10/13/20 -?-?-?-?-?-?-?-?-?-?-?-?- 26w 0d 187 lb 6 oz (+32 lb 6 oz) 136/68 Negative -?-?-?-?-?-?-?-?-?-?-?-?- Negative 144 -?-?-?-?-?-?-?-?-?-?-?-?- MH-work in for just doesn't feel well but is not vertigo. Difficulty to focus, fatigued. Good FM. NO VB, LOF. 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 Has been forcing fluids, increase salt. Will get labs and discuss with SM 10/30/20 -?-?-?-?-?-?-?-?-?-?-?-?- 28w 3d 192 lb 4 oz (+37 lb 4 oz) 118/72 -?-?-?-?-?-?-?-?-?-?-?-?- 150 28 Cephalic -?-?-?-?-?-?-?-?-?-?-?-?- GP - no LOF, VB, DFM, ctx. Discussed increased salt and adequate hydration for lightheadedness 11/13/20 -?-?-?-?-?-?-?-?-?-?-?-?- 30w 3d 197 lb (+42 lb) 130/60 Negative -?-?-?-?-?-?-?-?-?-?-?-?- Negative 140 30 Cephalic -?-?-?-?-?-?-?-?-?-?-?-?- SM- no vb lof go od no reular ctx 11/27/20 -?-?-?-?-?-?-?-?-?-?-?-?- 32w 3d 202 lb (+47 lb) 130/58 -?-?-?-?-?-?-?-?-?-?-?-?- 140 33 Cephalic -?-?--?-?-?-?-?-?-?-?-?-?- SM- SM- no vb lof good fm no reu glar ctx, learning the britany method for birthing support 12/11/20 -?-?-?-?-?-?-?-?-?-?-?-?- 34w 3d 206 lb (+51 lb) 128/70 Negative -?-?-?-?-?-?-?-?-?-?-?-?- Negative 155 34 Cephalic -?-?-?-?-?-?-?-?-?-?-?-?- GP - no LOF, VB, DFM, ctx. plan scanned into chart. to come next time and will review plan. 12/21/20 -?-?-?-?-?-?-?-?-?-?-?-?- 35w 6d 202 lb 2 oz (+47 lb 2 oz) 136/78 Negative -?-?-?-?-?-?-?-?-?-?-?-?- Negative 148 35 -?-?-?-?-?-?-?-?-?-?-?-?- -Work in for v omiting since last 11pm last night. No fluids kept down. 10 dip UA negative. Good FM. No VB, LOF. To infusion for fluids/zofran. 12/25/20 -?-?-?-?-?-?-?-?-?-?-?-?- 36w 3d 203 lb 8 oz (+48 lb 8 oz) 130/66 Negative -?-?-?-?-?-?-?-?-?-?-?-?- Negative 150 36 Cephalic -?-?-?-?-?-?-?-?-?-?-?-?- GP - no LOF, VB, DFM, ctx. Discussed plan and routes of delivery. GBS collected. 01/01/21 -?-?-?-?-?-?-?-?-?-?-?-?- 37w 3d 209 lb 2 oz (+54 lb 2 oz) 130/78 Negative -?-?-?-?-?-?-?-?-?-?-?-?- Negative 145 37 Cephalic -?-?-?-?-?-?-?-?-?-?-?-?- GP - no LOF, VB, DFM, ctx. Discussed breast disproportion following lumpectomy - reassurance provided. Encouraged chiropractor for hip pain. 01/08/21 -?-?-?-?-?-?-?-?-?-?-?-?- 38w 3d 207 lb (+52 lb) 138/70 Negative -?-?-?-?-?-?-?-?-?-?-?-?- Negative 130 38 Cephalic -?-?-?-?-?-?-?-?-?-?-?-?- GP - no LOF, VB, DFM, ctx. Denies complaints 01/15/21 -?-?-?-?-?-?-?-?-?-?-?-?- 39w 3d 211 lb 2 oz (+56 lb 2 oz) 132/70 Negative -?-?-?-?-?-?-?-?-?-?-?-?- Negative 130 39 Cephalic -?-?-?-?-?-?-?-?-?-?-?-?- GP - no LOF, VB, DFM, regular ctx. Denies complaints. 01/19/21 -?-?-?-?-?-?-?-?-?-?-?-?- 40w 0d 204 lb 12.8 oz (+49 lb 12.8 oz) 110/56 122/55 134/62 139/83 139/83 137/79 122/70 132/69 132/68 139/71 -?-?-?-?-?-?-?-?-?-?-?-?- -?-?-?-?-?-?-?-?-?-?-?-?- NST FHR Rate Baby A Baseline: 130 Variability:: Moderate Accelerations:: 15 x 15 Decelerations:: None NST Reactive:: Yes FHR Category:: Category I Uterine Activity:: Q2 MIN ROS Eyes Eyes: Reports systems reviewed and no addt'l complaints, except as documented ENT HEENT: Reports systems reviewed and no addt'l complaints, except as documented Cardiovascular Cardiovascular: Reports systems reviewed and no addt'l complaints, except as documented Respiratory/Chest Respiratory/Chest: Reports systems reviewed and no addt'l complaints, except as documented Gastrointestinal Gastrointestinal: Reports systems reviewed and no addt'l complaints, except as documented Genitourinary Genitourinary: Reports systems reviewed and no addt'l complaints, except as documented Musculoskeletal Musculoskeletal: Reports systems reviewed and no addt'l complaints, except as documented Integumentary Integumentary: Reports systems reviewed and no addt'l complaints, except as documented Neurologic Neurologic: Reports systems reviewed and no addt'l complaints, except as documented Psychiatric Psychiatric: Reports systems reviewed and no addt'l complaints, except as documented Endocrine Endocrinology: Reports systems reviewed and no addt'l complaints, except as documented Hematologic/Lymphatic Hematologic/Lymphatic: Reports systems reviewed and no addt'l complaints, except as documented Allergic/Immunologic Allergic/Immunologic: Reports systems reviewed and no addt'l complaints, except as documented Vital Signs Vital Signs Vital Signs: 01/19/21 23:20 01/19/21 23:33 01/19/21 23:38 Temperature Temperature Source Pulse Rate 73 65 73 Blood Pressure 110/56 L BP Systolic 110 BP Diastolic 56 Pulse Ox 99 99 98 01/20/21 00:25 01/20/21 00:28 01/20/21 00:37 Temperature Temperature Source Pulse Rate 80 78 Blood Pressure BP Systolic BP Diastolic Pulse Ox 99 93 83 01/20/21 00:38 01/20/21 01:35 01/20/21 01:36 Temperature 96.5 F L Temperature Source Temporal Pulse Rate 83 69 Blood Pressure 122/55 H 134/62 H BP Systolic 122 134 BP Diastolic 55 62 Pulse Ox 98 01/20/21 02:00 01/20/21 02:22 01/20/21 02:50 Temperature 97.7 F L Temperature Source Oral Pulse Rate 65 82 84 Blood Pressure 139/83 H BP Systolic 139 BP Diastolic 83 Pulse Ox 99 01/20/21 03:20 01/20/21 04:59 01/20/21 05:16 Temperature Temperature Source Pulse Rate 95 78 76 Blood Pressure 137/79 H 122/70 H 132/69 H BP Systolic 137 122 132 BP Diastolic 79 70 69 Pulse Ox 99 Weight Weight: 204 lb 12.8 oz Body Mass Index (BMI) 32.1 Physical Exam Const alert, oriented x3, no apparent distress, average body habitus, healthy appearing and well nourished HEENT normocephalic and moist oral mucous membranes Head and Scalp: atraumatic Eyes PERRL and EOMs intact bilaterally Neck full ROM Resp normal respiratory effort, no retractions and no use of accessory muscles Cardio regular rate and regular rhythm GI soft to palpation, non-tender and non-distended Extremity normal to inspection and full ROM Skin no rashes or lesions noted Neuro no focal motor deficits and no sensory deficits noted Psych mental status grossly normal, affect normal, speech normal and activity/motor behavior normal Labs Labs Labs: Blood Type B NEGATIVE Antibody Screen NEGATIVE Hct 39.5 % (37-47) Hgb 12.8 g/dL (12.0-15.0) Obstetrics US VZV IgG Antibody 653 index (Immune >165) Rubella IgG Antibody 43.2 IU/mL Glucose 1 Hr 50 gm 104 mg/dL (70-140) Assessment & Plan (1) : QUALIFIERS: Weeks of gestation: 39 weeks Qualified Code(s): Z3A.39 - 39 weeks gestation of COMMENT: declined genetic and carrier, ntd screen. nl anatomy additional views in 2 wks; GBS NEG (2) Supervision of other normal : COMMENT: PRR(urine tox & Hep C) SOLEDAD: 01/19/21 Spouse: Thomas (3) Rubella non-immune status, antepartum: COMMENT: needs MMR vaccine after delivery (4) Rh negative state in antepartum period: COMMENT: B neg- Rhogam PRN and at 28 weeks (5) UTI in : QUALIFIERS: Trimester: second trimester Qualified Code(s): O23.42 - Unspecified infection of urinary tract in , second trimester COMMENT: Culture - on 10/30/20 (6) Dehydration during : COMMENT: 12/21 IV fluids (7) Active labor at term: PLAN: Patient presents IAL, plan expectant management for , pitocin if needed. Pain management: natural. GBS negative. Management of any complications: none I have reviewed the [facility] and made any clinically relevant updates.
--- NOTE | 2021-01-20 05:29 | EX.PCM.OBRPT ---
Assessment & Plan (1) Active labor at term: (2) Spontaneous vaginal delivery: COMMENT: GP IAL 01/20 Girl-Georgiana (3) Rubella non-immune status, antepartum: COMMENT: needs MMR vaccine after delivery (4) : QUALIFIERS: Weeks of gestation: 39 weeks Qualified Code(s): Z3A.39 - 39 weeks gestation of COMMENT: declined genetic and carrier, ntd screen. nl anatomy additional views in 2 wks; GBS NEG (5) Supervision of other normal : COMMENT: PRR(urine tox & Hep C) SOLEDAD: 01/19/21 Spouse: Thomas (6) Rh negative state in antepartum period: COMMENT: B neg- Rhogam PRN and at 28 weeks (7) UTI in : QUALIFIERS: Trimester: second trimester Qualified Code(s): O23.42 - Unspecified infection of urinary tract in , second trimester COMMENT: Culture - on 10/30/20 (8) Dehydration during : COMMENT: 12/21 IV fluids Maternal Data Information SOLEDAD Calculator Estimated Delivery Date Method Current WG Current Estimate 01/19/21 LMP (Certain) 40w 1d Vaginal Delivery Maternal Presentation Maternal Presentation: Active Labor Maternal Presentation: 30-year-old G3, P0 at 40 weeks gestation admitted in active labor. Patient made rapid cervical change from 4 cm to complete dilation without augmentation. Operative Information Date of Procedure: 01/20/21 Pre-Operative Diagnosis: Term , active labor Post-Operative Diagnosis: Same Surgery / Procedure Performed: Spontaneous Vaginal Delivery Type of Anesthesia: Local with 1% Lidocaine Estimated Blood Loss: 300 Findings Description of Procedure: Patient began pushing and delivered the head in the ISMAEL presentation. The head was delivered atraumatically and no nuchal cord was noted. The anterior and posterior shoulders delivered without complication followed by the rest of the infant and the was placed on the maternal abdomen. Delayed cord clamping was employed for approximately 60 seconds. Cord was clamped and cut and gentle traction was applied to the cord and the placenta delivered spontaneously immediately following it was noted to be intact with three-vessel cord. The perineum and vagina were inspected and a midline first-degree perineal laceration was noted. The area was instilled with 1% lidocaine and repaired in the standard fashion using 3-0 Vicryl repeat suture. EBL was 300 cc. Patient and tolerated delivery well. Presentation: Vertex and ISMAEL Amniotic Membrane Rupture Type: Spontaneous Amniotic Fluid Description: Clear Cord Vessel Description: 3 Vessels Cord Entanglement: None Infant A Gender: Female Delayed Cord Clamping: Yes Post Vaginal Delivery Medications Given After Delivery: - (None-patient declined) Episiotomy Description: None Laceration: Midline, Perineal Extension/lac and 1st degree Complication Complications: None Procedures Urinary/Genital 52xxx-59xxx: 05792 Vaginal Delivery global g
--- NOTE | 2021-01-20 05:34 | PCM.DC ---
Discharge Instructions Diet Discharge Diet: No restrictions Activity Discharge Activity: Return to Normal Activity, May Not Drive (while taking narcotic pain medications.) and May Shower May resume sexual activity in: 4-6 weeks Dressing / Incision Call your doctor if your incision/area has: Continuous Slow Oozing, Sudden Increased Bleeding, Increased Pain/ Swelling, Increased Redness and Foul Smelling Discharge Follow Up Care When: Call to make an appointment with your doctor in 6 weeks. If you had elevated Blood Pressure or 4th degree laceration you will need to be seen in 2 weeks. Test Results: Test results from this visit will be discussed in further detail at your follow-up appointment, if applicable. Discharge Plan Admission Admit Date/Time: 01/19/21 23:45 Primary Reason for Your Visit: Labor Attending Provider: Carmela Espana Primary Care Provider: Christina Augustine Instructions Patient Instructions: After a Vaginal Discharge Orders/Prescriptions Prescriptions: New ibuprofen 800 mg tablet 800 mg PO Q8H PRN (Reason: pain) Qty: 60 RF: 1 Continued PNV 410-rqkyb-jbktn-3-fish oil 1 EACH tablet,chewable 1 tab PO DAILY RF: 0 Referrals / Follow Up: Christina Augustine MD [Primary Care Provider] -
[2021-01-20] MEDS: Acetaminophen 500 MG Tablet PO (06:04)
[2021-01-20 09:12] LABS: Hepatitis C Antibody Non-Reactive (Nonreactive)
[2021-01-20 10:00] LABS: Hepatitis B Surface Antigen Non-Reactive (Nonreactive)
[2021-01-20] MEDS: Acetaminophen 500 MG Tablet 1000 MG PO ×2 (14:07→20:14)
[2021-01-20] MEDS: Senna/Docusate Sodium 1 Tablet PO (16:13)
[2021-01-20] MEDS: Ibuprofen 600 MG Tablet PO (17:56)
--- NOTE | 2021-01-20 22:57 | NURSING ---
RN discussed and explained bathing, pt would like to do first bath at home
[2021-01-21] MEDS: Acetaminophen 500 MG Tablet 1000 MG PO (04:46)
[2021-01-21 04:47] VITALS: BP 107/51; PULSE 68; RESP 18; TEMP 36.6
--- NOTE | 2021-01-21 07:31 | NURSING ---
report given to Danna Perez RN and Sundeep Mora RN who are assuming care of pt at this time
[2021-01-21] MEDS: Senna/Docusate Sodium 1 Tablet PO (07:46)
[2021-01-21 07:48] VITALS: BP 125/70; PULSE 66; RESP 16; TEMP 36.7
--- NOTE | 2021-01-21 08:42 | PCM.PN.OB ---
Subjective Subjective Patient doing well without complaints. Tolerating PO. Ambulating and voiding without difficulty. Breast feeding well. Denies chest pain, shortness of breath, calf pain/swelling, fevers, chills, lightheadedness. Objective Data Objective Data Vital Signs: Vital Signs Temp Pulse Resp BP Pulse Ox 98.0 F 66 16 125/70 H 97 01/21/21 07:48 01/21/21 07:48 01/21/21 07:48 01/21/21 07:48 01/20/21 20:10 Oxygen Delivery Method Room Air Weight: 204 lb 12.8 oz Body Mass Index (BMI) 32.1 Intake & Output: Intake and Output for Last 24 Hours 01/19/21 01/20/21 01/21/21 23:59 23:59 23:59 Output Total 1100 / 1100 Balance -1100 / -1100 Lab / Micro Data Result Diagrams: 01/20/21 00:45 Labs: Laboratory Results - last 24 hr 01/20/21 05:50: Hep Bs Antigen Non-Reactive 01/20/21 05:50: Hepatitis C Antibody Non-Reactive 01/20/21 08:38: Screen NEGATIVE, Baby's Blood Type A POSITIVE, Baby's LUZ NEGATIVE Micro: Microbiology 01/20/21 02:45 Nasal Secretion SARS-CoV-2 Antigen (Rapid) - Final ROS Constitutional Constitutional: Denies fever(s) Cardiovascular Cardiovascular: Denies chest pain, dyspnea or lightheadedness Gastrointestinal Gastrointestinal: Reports abdominal pain; Denies constipation or diarrhea Neurologic Neurologic: Denies dizziness or headache(s) Physical Exam Const alert, oriented x3, no apparent distress, average body habitus, healthy appearing and well nourished HEENT normocephalic Head and Scalp: atraumatic Eyes PERRL and EOMs intact bilaterally Neck full ROM Lymph Lymphatic: no lymphadenopathy noted Resp normal respiratory effort, no retractions and no use of accessory muscles Cardio regular rate GI soft to palpation, non-tender and non-distended Palpation: other Other Details: fundus firm Extremity normal to inspection and no clubbing, cyanosis or edema Skin no rashes or lesions noted Neuro no focal motor deficits and no sensory deficits noted Psych mental status grossly normal, affect normal and speech normal Assessment & Plan (1) Vaginal delivery: PLAN: s/p PPD # 1 1. routine post delivery care 2. breast feeding- support given 3. rh negative 4. rubella immune
== END 2021-01-21 12:05 | disposition home or self-care (01) | DRG 807 ==
LOC: WPOUT 01-20 00:14 → WP 01-20 00:14
PROVIDERS: Admitting Provider Obstetrics & Gynecology; PCP Family Medicine; Visit Provider Obstetrics & Gynecology
DX: O70.0 First degree perineal laceration during delivery (principal); Z37.0 Single live birth; O26.23 Pregnancy care for patient with recurrent pregnancy loss, third trimester; Z3A.40 40 weeks gestation of pregnancy; Z80.41 Family history of malignant neoplasm of ovary
CPT/HCPCS: 59025; 59050; 84112; 85025; 85461; 86803; 86850; 86900; 86901; 87340; 87426; 90384; 99218; A4216; G0378; J2790

== ENCOUNTER 2021-05-21 08:02 | Outpatient (CLI) | payer OTHER, SELFPAY ==
--- NOTE | 2021-05-21 08:39 | MRI_ITS ---
STUDY: MRI BRAIN WITH AND WITHOUT CONTRAST (ATTENTION INTERNAL AUDITORY CANALS - I.A.C.''s) REASON FOR EXAM: Female, 30 years old. VERTIGO TECHNIQUE: Standardized multiplanar fat and water weighted pulse sequences were obtained. 17CC IV DOTAREM was administered for the contrast portion of the examination. COMPARISON: None. FINDINGS: Normal bilateral temporal bones. Normal bilateral internal auditory canals. There is no demonstrated intracanalicular or cisternal vestibular schwannoma (acoustic neuroma). There is no enhancement of the bilateral VIIth or VIIIth cranial nerves. Normal bilateral cochlea, vestibules and semicircular canals. Normal size of the ventricles and extra-axial spaces for the patient''s age. Normal white matter tracts of the supratentorial brain. Normal bilateral basal ganglia. Normal thalami. There is no enhancing intra-axial or extra-axial abnormality. There is no extra-axial fluid accumulation. Normal sella turcica, pituitary gland, infundibular stalk, optic chiasm and hypothalamus. Normal tectal plate and pineal gland. Normal midbrain, chhaya and medulla. Normal cerebellum. Normal basal cisterns. MRI/Brain W/WO Contrast IMPRESSION: Unremarkable unenhanced and enhanced MRI of the bilateral internal auditory canals (I.A.C''s). Electronically Signed: Lucita Dutton MD at 15:59 EST Tel , Service support ,
== END 2021-05-21 23:59 | disposition short-term general hospital (02) ==
LOC: MRI 08:02
PROVIDERS: PCP Family Medicine; Referring Provider Otolaryngology; Visit Provider Otolaryngology
DX: R42 Dizziness and giddiness (principal)
CPT/HCPCS: 70553; A9575

== ENCOUNTER 2021-06-10 12:35 | Outpatient (CLI) | payer OTHER, SELFPAY ==
[2021-06-10 15:09] LABS: Absolute Lymphocyte Count 1.53 X10^3/uL (0.83-4.51); Absolute Neutrophil Count 5.7 X10^3/uL (2.0-7.7); Basophil# 0.03 X10^3/uL; Basophil% 0.4 % (0-1); Eosinophil# 0.12 X10^3/uL; Eosinophils% 1.5 % (0-5); Hematocrit 42.1 % (37-47); Hemoglobin 14.2 g/dL (12.0-15.0); Lymphocyte # 1.53 X10^3/ul (0.83-4.51); Lymphocyte % 18.9 % (19-41); Mean Corp Hgb Conc 33.7 g/dL (32-36); Mean Corpuscular Hgb 26.6 pg (27.0-32.0); Mean Corpuscular Volume 78.8 fL (81-99); Mean Platelet Vol. 10.8 fl (6.2-12.0); Monocyte# 0.74 X10^3/uL; Monocyte% 9.1 % (0-10); NRBC Flagged by Analyzer 0 % (0-5); Neutrophil # 5.65 X10^3/uL (2.7-7.7); Neutrophil % 69.7 % (47-70); Platelet Count 280 K/mm3 (150-450); RBC Distribution Width SD 39.8 fl (35.1-43.9); Red Blood Count 5.34 M/mm3 (4.2-5.4); White Blood Count 8.1 K/mm3 (4.4-11.0)
[2021-06-10 15:19] LABS: Albumin, Serum 4.3 g/dL (3.2-5.0); BUN 13 mg/dL (7-18); BUN/Creat Ratio 20.2 RATIO (10-20); Creatinine, Serum 0.64 mg/dL (0.55-1.02); EST Glomerular Filtration Rate 116 mL/min (>60); Est Glom Filt Rate - Afr Amer 140 mL/min (>60); Globulin 3.7 g/dL (2.2-4.2); Glucose 85 mg/dL (74-106)
[2021-06-10 15:20] LABS: ALB/GLOB Ratio 1.2 RATIO (0.9-2.4); AST(SGOT) 13 U/L (15-37); Alanine Aminotransfer ALT/SGPT 25 U/L (13-56); Alkaline Phosphatase 83 U/L (45-117); Anion Gap 9 (5-15); Calcium,Total 9.4 mg/dL (8.5-10.1); Chloride 106 mmol/L (98-107); Potassium 3.9 mmol/L (3.5-5.1); Sodium Level 136 mmol/L (136-145)
== END 2021-06-10 23:59 | disposition home or self-care (01) ==
LOC: MTLAB 12:35
PROVIDERS: PCP Family Medicine; Referring Provider Family Medicine; Visit Provider Family Medicine
DX: R11.0 Nausea (principal)
CPT/HCPCS: 36415; 80053; 85025

== ENCOUNTER → 2022-01-07 | Outpatient (CLI) | payer OTHER, SELFPAY ==
[2022-01-07 17:58] LABS: Amphetamine Urine VISTA NEGATIVE (<1000 ng/mL); Barbiturate Urine VISTA NEGATIVE (< 200 ng/mL); Benzodiazepine Urine VISTA NEGATIVE (< 200 ng/mL); Cocaine Urine VISTA NEGATIVE (< 300 ng/mL); Ecstacy Urine VISTA NEGATIVE (< 500 ng/mL); Methadone Urine VISTA NEGATIVE (< 300 ng/mL); PCP Urine VISTA NEGATIVE (< 25 ng/mL); THC Urine VISTA NEGATIVE (< 50 ng/mL); Vista UDS pH Range 5
[2022-01-10 22:06] LABS: Chlamydia By Nucleic Acid AMP Negative (Negative)
[2022-01-11 11:12] LABS: Gonococcus By Nucleic Acid AMP Negative (Negative)
== END | disposition home or self-care (01) ==
PROVIDERS: PCP Family Medicine; Visit Provider Obstetrics & Gynecology
DX: Z34.90 Encounter for supervision of normal pregnancy, unspecified, unspecified trimester (principal)
CPT/HCPCS: 80307; 87086; 87088; 87491; 87591

== ENCOUNTER → 2022-04-06 | Outpatient (CLI) | payer OTHER, SELFPAY ==
[2022-04-06 17:13] LABS: Absolute Lymphocyte Count 1.19 X10^3/uL (0.83-4.51); Absolute Neutrophil Count 6.9 X10^3/uL (2.0-7.7); Basophil# 0.01 X10^3/uL; Basophil% 0.1 % (0-1); Eosinophil# 0.07 X10^3/uL; Eosinophils% 0.8 % (0-5); Hematocrit 34.1 % (37-47); Hemoglobin 11.5 g/dL (12.0-15.0); Lymphocyte # 1.19 X10^3/ul (0.83-4.51); Lymphocyte % 13.4 % (19-41); Mean Corp Hgb Conc 33.7 g/dL (32-36); Mean Corpuscular Hgb 27.6 pg (27.0-32.0); Mean Corpuscular Volume 81.8 fL (81-99); Mean Platelet Vol. 9.7 fl (6.2-12.0); Monocyte# 0.63 X10^3/uL; Monocyte% 7.1 % (0-10); NRBC Flagged by Analyzer 0 % (0-5); Neutrophil # 6.94 X10^3/uL (2.7-7.7); Neutrophil % 77.9 % (47-70); Platelet Count 218 K/mm3 (150-450); RBC Distribution Width CV 13.9 % (11.6-14.6); RBC Distribution Width SD 41.1 fl (35.1-43.9); Red Blood Count 4.17 M/mm3 (4.2-5.4); White Blood Count 8.9 K/mm3 (4.4-11.0)
[2022-04-06 18:50] LABS: HIV - WCH Non-Reactive (Nonreactive); Hepatitis B Surface Antigen Non-Reactive (Nonreactive); Hepatitis C Antibody Non-Reactive (Nonreactive); Rubella IgG Reactive (Nonreactive); Syphilis Antibodies Non-reactive
== END | disposition home or self-care (01) ==
LOC: LABSPEC 16:23
PROVIDERS: PCP Family Medicine; Visit Provider Obstetrics & Gynecology
DX: Z34.90 Encounter for supervision of normal pregnancy, unspecified, unspecified trimester (principal)
CPT/HCPCS: 36415; 85025; 86703; 86762; 86780; 86803; 86850; 86900; 86901; 87340

== ENCOUNTER → 2022-04-13 | Outpatient (CLI) | payer OTHER, SELFPAY ==
--- NOTE | 2022-04-13 15:23 | US_ITS ---
STUDY: SECOND AND THIRD TRIMESTER OBSTETRICAL ULTRASOUND REASON FOR EXAM: Female, 31 years old anatomy TECHNIQUE: Transabdominal and Transvaginal PRIOR ULTRASOUND: 09/22/2020 FINDINGS: There is a single intrauterine fetus. The fetus is in a variable presentation changing between breech and transverse right position. There is demonstrated cardiac activity with a heart rate of 160 bpm. There is a normal amniotic fluid volume. The largest amniotic fluid pocket measures 6.7 cm. The placenta is posterior and not low-lying. There are Grade 0 placental changes. The cervix measures 3.6 cm in length. The adnexal regions are not visualized. BPD: 5.6 cm = 23 weeks, 2 day(s) HC: 22 cm = 23 weeks, 6 day(s) AC: 20.2 cm = 24 weeks, 6 day(s) FL: 4.5cm = 24 weeks, 6 day(s) EGA by ultrasound: 24 weeks 0 day(s) SOLEDAD by ultrasound: 08/03/2022 Estimated weight: 717 grams Weight percentile: 82% ANATOMY: Gender: Male Cranium: Normal lateral ventricles. Normal choroid plexus. Normal cerebellum. Normal cisterna magna. Normal face, nose and lips. Chest: Normal 4-chamber heart. Abdomen/Pelvis: Normal diaphragm. Normal stomach. Normal abdominal wall. Normal cord insertion. Normal 3 vessel cord. Normal kidneys. Normal bladder. Spine: Normal cervical spine. Normal thoracic spine. Normal lumbar spine. Normal sacrum. Extremities: Normal bilateral upper extremities. Normal bilateral lower extremities. US/OB Anatomy Scan IMPRESSION: Living intrauterine with estimated gestational age of 24 weeks and 0 days. No anomalies. Electronically Signed: Colby Whitmore MD at 23:57 EST ,
== END | disposition home or self-care (01) ==
LOC: OPUS 15:22
PROVIDERS: PCP Family Medicine; Referring Provider Obstetrics & Gynecology; Visit Provider Obstetrics & Gynecology
DX: Z36.9 Encounter for antenatal screening, unspecified (principal); Z3A.24 24 weeks gestation of pregnancy; O09.90 Supervision of high risk pregnancy, unspecified, unspecified trimester
CPT/HCPCS: 76805; 76817

== ENCOUNTER → 2022-05-12 | Outpatient (CLI) | payer OTHER, SELFPAY ==
[2022-05-12 13:06] LABS: Absolute Lymphocyte Count 1.18 X10^3/uL (0.83-4.51); Absolute Neutrophil Count 7.4 X10^3/uL (2.0-7.7); Basophil# 0.02 X10^3/uL; Basophil% 0.2 % (0-1); Eosinophil# 0.06 X10^3/uL; Eosinophils% 0.6 % (0-5); Hematocrit 36.4 % (37-47); Hemoglobin 12.2 g/dL (12.0-15.0); Lymphocyte # 1.18 X10^3/ul (0.83-4.51); Lymphocyte % 12.6 % (19-41); Mean Corp Hgb Conc 33.5 g/dL (32-36); Mean Corpuscular Hgb 27.3 pg (27.0-32.0); Mean Corpuscular Volume 81.4 fL (81-99); Mean Platelet Vol. 9.8 fl (6.2-12.0); Monocyte# 0.65 X10^3/uL; Monocyte% 6.9 % (0-10); NRBC Flagged by Analyzer 0 % (0-5); Neutrophil # 7.36 X10^3/uL (2.7-7.7); Neutrophil % 78.6 % (47-70); Platelet Count 252 K/mm3 (150-450); RBC Distribution Width CV 13.4 % (11.6-14.6); RBC Distribution Width SD 39.8 fl (35.1-43.9); Red Blood Count 4.47 M/mm3 (4.2-5.4); White Blood Count 9.4 K/mm3 (4.4-11.0)
[2022-05-12 13:38] LABS: Glucose Challenge Gest 1H 50g 104 mg/dL (70-140)
[2022-05-12 14:08] LABS: HIV - WCH Non-Reactive (Nonreactive); Syphilis Antibodies Non-reactive
== END | disposition home or self-care (01) ==
LOC: LAB 11:52
PROVIDERS: PCP Family Medicine; Referring Provider Registered Nurse; Visit Provider Registered Nurse
DX: Z01.818 Encounter for other preprocedural examination (principal); Z01.810 Encounter for preprocedural cardiovascular examination; O09.90 Supervision of high risk pregnancy, unspecified, unspecified trimester
CPT/HCPCS: 36415; 82950; 85025; 86703; 86780

== ENCOUNTER → 2022-05-17 | Outpatient (CLI) | payer OTHER, SELFPAY | END | disposition home or self-care (01) | LOC: MTLAB 11:41 | PROVIDERS: PCP Family Medicine; Referring Provider Obstetrics & Gynecology; Visit Provider Obstetrics & Gynecology | DX: O26.899 Other specified pregnancy related conditions, unspecified trimester (principal); Z67.91 Unspecified blood type, Rh negative | CPT/HCPCS: 36415; 86900; 86901 ==

== ENCOUNTER → 2022-05-25 | Outpatient (CLI) | payer OTHER, SELFPAY | END | disposition home or self-care (01) | LOC: LAB 14:54 | PROVIDERS: PCP Family Medicine; Visit Provider Obstetrics & Gynecology | DX: O26.899 Other specified pregnancy related conditions, unspecified trimester (principal); Z67.91 Unspecified blood type, Rh negative | CPT/HCPCS: 36415; 86900; 86901 ==

== ENCOUNTER → 2022-07-12 | Outpatient (CLI) | payer BC, SELFPAY | END | disposition home or self-care (01) | LOC: LABSPEC 15:44 | PROVIDERS: PCP Family Medicine; Visit Provider Obstetrics & Gynecology | DX: O09.90 Supervision of high risk pregnancy, unspecified, unspecified trimester (principal); Z3A.00 Weeks of gestation of pregnancy not specified | CPT/HCPCS: 87081 ==

== ENCOUNTER 2022-08-02 13:50 | Outpatient (CLI) | payer BC, SELFPAY ==
[2022-08-02 14:19] VITALS: BP 131/78; PULSE 90; TEMP 36.3; O2SAT 100
[2022-08-02 14:25] VITALS: BMI 32.3
[2022-08-02 14:37] LABS: ROM Internal Control Test YES-OK TO RESULT pt. (Internal QC); ROM Patient Test Negative (Negative)
--- NOTE | 2022-08-04 17:43 | OB.TRI.PN_ITS ---
Progress Notes Date of Service: 08/02/22 Progress Note: Patient presents for triage evaluation secondary to false labor FHT: 140 Moderate variability reactive no decelerations category I tracing [place]: q 5-10 Contractions Assessment and plan: 4 cm dilated false labor Reactive NST, reassuring maternal and status patient discharged to home to follow-up as scheduled or return in labor. See problem list details for additional plan information. Laboratory Studies: Laboratory Tests 08/02/22 Range/Units 14:07 Vag Amniotic Fld Detect Negative (Negative) Charges/Coding Procedures Urinary/Genital 52xxx-59xxx: [id number] non-stress test Interp
== END 2022-08-02 15:05 | disposition home or self-care (01) ==
LOC: WPOUT 14:02 → WP 14:16
PROVIDERS: PCP Family Medicine; Referring Provider Obstetrics & Gynecology; Visit Provider Obstetrics & Gynecology
DX: O47.9 False labor, unspecified (principal); Z3A.00 Weeks of gestation of pregnancy not specified
CPT/HCPCS: 59025; 59050; 84112; 99221; G0378

== ENCOUNTER 2022-08-03 01:08 | Inpatient (IN) | payer BC, SELFPAY ==
[2022-08-03] VITALS (25 sets, daily range): BP systolic 114–156; BP diastolic 57–73; PULSE 52–95; RESP 16–18; TEMP 36.4–37; O2SAT 98–99; BMI 31.9
[2022-08-03 01:31] LABS: Absolute Lymphocyte Count 0.72 X10^3/uL (0.83-4.51); Basophil# 0.02 X10^3/uL; Basophil% 0.2 % (0-1); Hematocrit 36.9 % (37-47); Hemoglobin 11.9 g/dL (12.0-15.0); Lymphocyte # 0.72 X10^3/ul (0.83-4.51); Mean Corp Hgb Conc 32.2 g/dL (32-36); Mean Corpuscular Hgb 25.5 pg (27.0-32.0); Mean Corpuscular Volume 79.2 fL (81-99); Mean Platelet Vol. 9.7 fl (6.2-12.0); Monocyte# 0.56 X10^3/uL; Monocyte% 5.4 % (0-10); NRBC Flagged by Analyzer 0 % (0-5); Neutrophil # 8.96 X10^3/uL (2.7-7.7); Neutrophil % 86.5 % (47-70); Platelet Count 223 K/mm3 (150-450); RBC Distribution Width CV 13.7 % (11.6-14.6); RBC Distribution Width SD 38.9 fl (35.1-43.9); Red Blood Count 4.66 M/mm3 (4.2-5.4); White Blood Count 10.4 K/mm3 (4.4-11.0)
[2022-08-03 02:36] LABS: Syphilis Antibodies Non-reactive
[2022-08-03] MEDS: Oxytocin 15 Units/NS 250ml 15 UNITS/250 ML IV.SOLN 83 UNITS IV (02:40)
[2022-08-03] MEDS: Oxytocin 10 UNITS/ML Vial IM (02:43)
--- NOTE | 2022-08-03 02:58 | HP.PCM.OB_ITS ---
HPI - General General Date of Admission: 08/03/22 HPI Narrative BECCA MCCLURE, is a 32 F who presents Maternal Data Information SOLEDAD Calculator Estimated Delivery Date Method Current WG Current Estimate 08/05/22 LMP (Certain) 39w 5d Other Estimates 08/03/22 Ultrasound #1 40w 0d PFSH PFS Medical History (Updated 08/03/22 @ 03:[address] Katina Francisco MD) Acute pharyngitis, unspecified Contact with and (suspected) exposure to other viral communicable diseases History of miscarriage Rh negative state in antepartum period Uterine anomaly Home Medications 103-folic acid 400 mcg-omeg3 32.5 mg-dha-fish oil chew tablet 1 tab PO DAILY 06/17/20 [History Last Taken 01/18/21 08:00] Allergy/AdvReac Type Severity Reaction Status Date / Time No Known Allergies Allergy Verified 08/02/22 14:27 Family History Aunt Ovarian cancer Uterine cancer, Onset Age: 57 Maternal Aunt Surgical History History of lumpectomy S/P dilation and curettage Status post hysteroscopic surgical removal of uterine septum (~02/14/20) Social History adopted: No household members: spouse and children housing: house number of children: 1 current occupational status: employed 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 current occupational exposures/hazards: No history of recent travel: No sexually active: Yes Smoking Status: Never smoker alcohol intake: never details: not since substance use type: does not use well-balanced diet: daily or most days caffeine: Yes Type: tea Number of servings: 1 eating out: rarely or never what type of physical activity do you participate in: walking, bicycling, yoga and other details: volleyball frequency: 3-4 times per week awa/hindu: Rastafari seatbelt use: always do you feel safe at home: Yes additional social history: - 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 Date Name GA/Weeks Outcome Route Bth Weight Infant Gen Labor Lgth Anesthesia Del Giovanin Provider FOB 01/20/21 Georgiana 40 live - full term Female [facility] Malorie Delivery Date: 01/20/21 Last Updated by: Maria Guadalupe España admitted in active labor. Visit Details Expected Delivery Route/Plan Labor Preferences- CB/BF classes: second time around! britany method labor support person: Thomas labor intervention preferences: [] pain management options preferred:wants to do a tub labor. cut cord/dad catch: [] : [will breastfeed] PP control planned: nexplanon at pp visit discussed possible routes of delivery and associated risks: [] special requests: [] Plans Covid status: [vaccinated] Flu vaccine: [will obtain 03/03] Tdap vaccine: obtained Rhogam: [will obtain at 28 weeks] LARC form signed: obtained Problem list reviewed and updated with the most current plan of care details and appropriate orders placed. Relevant counseling for the gestational age provided. Continue routine care and follow up unless otherwise noted in visit notes/problem list details OB Flowsheet Initial Weight: Not Recorded Date -?-?-?-?-?-?-?-?-?-?-?-?- EGA Weight BP Urine Prot -?-?-?-?-?-?-?-?-?-?-?-?- Glucose FHR FuHt Pres Dilation -?-?-?-?-?-?-?-?-?-?-?-?- Effaced St Visit Note 01/07/22 -?-?-?-?-?-?-?-?-?-?-?-?- 10w 0d 159 lb 120/82 -?-?-?-?-?-?-?-?-?-?-?-?- 180 -?-?-?-?-?-?-?-?-?-?-?-?- SM- CRL 3cm cons with LMP 02/02/22 -?-?-?-?-?-?-?-?-?-?-?-?- 13w 5d 180 lb 114/73 Negative -?-?-?-?-?-?-?-?-?-?-?-?- Negative 150 -?-?-?--?-?-?-?-?-?-?-?-?- JV- no lof, vagi nal bleeding, or dec fm. wants tub labor. 03/02/22 -?-?-?-?-?-?-?-?-?-?-?-?- 17w 5d 182 lb 3 oz 120/72 Nega tive -?-?-?-?-?-?-?-?-?-?-?-?- Negative 135 -?-?-?-?-?-?-?-?-?-?-?-?- LC- no lof, vb,c tx. declines afp. has anatomy scheduled. 03/30/22 -?-?-?-?-?-?-?-?-?-?-?-?- 21w 5d 189 lb 119/73 Negative -?-?-?-?-?-?-?-?-?-?-?-?- Negative 154 -?-?-?-?-?-?-?-?-?-?-?-?- JV- no lof, vagi nal bleeding, or dec fm. needs new ob labs and pt knows this. 04/27/22 -?-?-?-?-?-?-?-?-?-?-?-?- 25w 5d 194 lb 8 oz 120/67 -?-?-?-?-?-?-?-?-?-?-?-?- 140 25 -?-?-?-?-?-?-?-?-?-?-?-?- Lc- no lof/ vb/c tx. good fm. has 28week labs 05/13/22 -?-?-?-?-?-?-?-?-?-?-?-?- 28w 0d 197 lb 2 oz 117/65 Nega tive -?-?-?-?-?-?-?-?-?--?-?-?- Negative 122 28 -?-?-?-?-?-?-?-?-?-?-?-?- JV- pt needs to come back early next week for type and screen and rhogam. passed her 1 hr today. deciding on tdap 05/25/22 -?-?-?-?-?-?-?-?-?-?-?-?- 29w 5d 202 lb 2 oz 126/74 Nega tive -?-?-?-?-?-?-?-?-?-?-?-?- Negative 144 -?-?-?-?-?-?-?-?-?-?-?-?- JV- pt to get rh ogam today after type and screen. she misunderstood and got it done on the . No complaints today 06/10/22 -?-?-?-?-?-?-?-?-?-?-?-?- 32w 0d 198 lb 118/66 Negative -?-?-?-?-?-?-?-?-?-?-?-?- Negative 130 32 -?-?-?-?-?-?-?-?-?-?-?-?- LC- doing well. good fm. no ctx/lof/vb. tdap today. larc 06/22/22 -?-?-?-?-?-?-?-?-?-?-?-?- 33w 5d 202 lb 8 oz 117/77 Nega tive -?-?-?-?-?-?-?-?-?-?-?-?- Negative 140 34 -?-?-?-?-?-?-?-?-?-?-?-?- LC- doing well. good fm. no ctx/lof/vb. 07/06/22 -?-?-?-?-?-?-?-?-?-?-?-?- 35w 5d 206 lb 4 oz 118/70 Nega tive -?-?-?-?-?-?-?-?-?-?-?-?- Negative 155 35 -?-?-?-?-?-?-?-?-?-?-?-?- JV- no lof, vagi nal bleeding, or dec fm. no complaints today. plans to NOT have cervical exams unless needed. 07/12/22 -?-?-?-?-?-?-?-?-?-?-?-?- 36w 4d 205 lb 129/72 Negative -?-?-?-?-?-?-?-?-?-?-?-?- Negative 137 36 Cephalic -?-?-?-?-?-?-?-?-?-?-?-?- JV-gbs collected . plan discussed. 07/19/22 -?-?-?-?-?-?-?-?-?-?-?-?- 37w 4d 207 lb 2 oz 107/63 Nega tive -?-?-?-?-?-?-?-?-?-?-?-?- Negative 135 37 -?-?-?-?-?-?-?-?-?-?-?-?- JV- gbs neg. no lof, vaginal bleeding, or dec fm. 07/29/22 -?-?-?-?-?-?-?-?-?-?-?-?- 39w 0d 215 lb 4 oz 119/65 Nega tive -?-?-?-?-?-?-?-?-?-?-?-?- Negative 125 39 -?-?-?-?-?-?-?-?-?-?-?-?- SM_ no vb lof go od fm no reuglar ctx 08/03/22 -?-?-?-?-?-?-?-?-?-?-?-?- 39w 5d 204 lb 131/66 -?-?-?-?-?-?-?-?-?-?-?-?- -?-?-?-?-?-?-?-?-?-?-?-?- Vital Signs Vital Signs Vital Signs: 08/03/22 00:43 08/03/22 00:43 08/03/22 00:43 Temperature Temperature Source Temporal Pulse Rate 86 Blood Pressure 131/66 H BP Systolic 131 BP Diastolic 66 Pulse Ox 08/03/22 00:43 08/03/22 00:43 Temperature 98.6 F Temperature Source Pulse Rate Blood Pressure BP Systolic BP Diastolic Pulse Ox 99 Weight Weight: 204 lb Body Mass Index (BMI) 31.9 Labs Labs Labs: Blood Type B NEGATIVE Antibody Screen NEGATIVE Hct 36.9 % (37-47) L Hgb 11.9 g/dL (12.0-15.0) L Obstetrics US Syphilis Total Ab Non-reactive VZV IgG Antibody 653 index (Immune >165) Rubella IgG Antibody Reactive (Nonreactive) Hep Bs Antigen Non-Reactive (Nonreactive) Chlamydia DNA (PALOMA) Negative (Negative) Neisseria gonorrhoeae DNA (PALOMA) Negative (Negative) HIV 1&2 Antibody Non-Reactive (Nonreactive) Glucose 1 Hr 50 gm 104 mg/dL (70-140) Rhogam given: Yes Assessment & Plan (1) : QUALIFIERS: Weeks of gestation: 39 weeks Qualified Code(s): Z3A.39 - 39 weeks gestation of COMMENT: GBS Negative, discussed genetic and carrier testing. nl anatomy. (2) Supervision of high risk , antepartum: COMMENT: PRR , SOLEDAD 08/05/22, PC Georgiana, Spouse Thomas GBS negative (3) History of miscarriage: COMMENT: 2020 8 weeks, uterine septum discovered and removed. (4) Rh negative, antepartum: COMMENT: is Rh+, Rhogam @ 28 weeks and PRN bleeding (5) Active labor at term: PLAN: Plan Patient presents IAL, plan expectant management for , pitocin/AROM PRN if needed. Pain management: minimal intervention. GBS neg. Management of any complications: none I have reviewed the [facility] and made any clinically relevant updates.
--- NOTE | 2022-08-03 03:04 | OP.PCM_ITS ---
Assessment & Plan (1) Active labor at term: (2) Rh negative, antepartum: COMMENT: is Rh+, Rhogam @ 28 weeks and PRN bleeding (3) Supervision of high risk , antepartum: COMMENT: PRR , SOLEDAD 08/05/22, PC Georgiana, Spouse Thomas GBS negative (4) History of miscarriage: COMMENT: 2020 8 weeks, uterine septum discovered and removed. (5) : QUALIFIERS: Weeks of gestation: 39 weeks Qualified Code(s): Z3A.39 - 39 weeks gestation of COMMENT: GBS Negative, discussed genetic and carrier testing. nl anatomy. (6) Vaginal delivery: COMMENT: SM IAL 39 boy Gabriel Maternal Data Information SOLEDAD Calculator Estimated Delivery Date Method Current WG Current Estimate 08/05/22 LMP (Certain) 39w 5d Other Estimates 08/03/22 Ultrasound #1 40w 0d Vaginal Delivery Operative Information Date of Procedure: 08/03/22 Pre-Operative Diagnosis: see a/p diagnoses Post-Operative Diagnosis: same Surgery / Procedure Performed: Spontaneous Vaginal Delivery Type of Anesthesia: Epidural Special Medications: none Estimated Blood Loss: 200 Fluids Replaced: crystalloid Findings Description of Procedure: Patient began pushing and delivered the head in the ISMAEL presentation. The head was delivered atraumatically and a loose nuchal cord ?1 was identified and the delivered through without complication. The anterior and posterior shoulders delivered without complication followed by the rest of the and the was placed on the maternal abdomen. Delayed cord clamping was employed for approximately 60 seconds. Cord was clamped and cut and gentle traction was applied to the cord and the placenta delivered spontaneously immediately following it was noted to be intact with three-vessel cord. The perineum and vagina were inspected and noted to have a second degree perineal laceration which was injected with lidocaine and repaired in the usual fashion with 3-0 vicryl rapide. . EBL was 200 cc. Patient and tolerated delivery well. Amniotic Fluid Description: Clear Placental Delivery Description: Spontaneous Placenta Disposition: [facility] Cord Vessel Description: 3 Vessels Cord Entanglement: None Delayed Cord Clamping: Yes Post Vaginal Delivery Medications Given After Delivery: IV Pitocin Episiotomy Description: None Complication Complications: None Procedures Urinary/Genital 52xxx-59xxx: [id number] Vaginal Delivery [facility]
--- NOTE | 2022-08-03 03:14 | DCINST_ITS ---
Discharge Instructions Diet Discharge Diet: No restrictions Activity Discharge Activity: Return to Normal Activity, May Drive, May Shower and May Take a Tub Bath (in 4 weeks) May resume sexual activity in: 6-8 weeks (after seen by OB provider) Weight Bearing Status: Full weight bearing Lifting Restrictions: none Dressing / Incision Call your doctor if you observe: Fever of 101 or Higher, Inability to urinate, Using more than 1 pad per hour (for more than 2 hours in a row or more), Shortness of breath, Dizziness, Chest pain and - (headache not controlled with tylenol, change in vision) Follow Up Care When: in 6 weeks for visit, call the office to make the appointment. If you had elevated blood pressures call the office to be seen within 1 week. Test Results: Test results from this visit will be discussed in further detail at your follow- up appointment, if applicable. Discharge Plan Admission Admit Date/Time: 08/03/22 01:08 Attending Provider: Katina Francisco Primary Care Provider: Christina Aguustine Discharge Orders/Prescriptions Prescriptions: No Action PNV 441-pudjg-vypqx-3-fish oil 1 EACH tablet,chewable 1 tab PO DAILY Referrals / Follow Up: Christina Augustine MD [Primary Care Provider] - Disposition Disposition (needs filled in before D/C Order can be placed): Home, Self Care
[2022-08-03] MEDS: Lactated Ringers 1,000 ML 50 ML IV (04:03)
[2022-08-03] MEDS: Naproxen 500 MG Tablet PO ×3 (04:37→21:01)
[2022-08-03] MEDS: Acetaminophen 500 MG Tablet 1000 MG PO ×3 (08:04→23:01)
[2022-08-04] VITALS (9 sets, daily range): BP systolic 113–144; BP diastolic 57–73; PULSE 65–103; RESP 16–18; TEMP 36.3–36.7; O2SAT 80–100
--- NOTE | 2022-08-04 06:00 | NURSING ---
[facility] downtime from [id number]. Back charting for all care provided during that times.
[2022-08-04] MEDS: Naproxen 500 MG Tablet PO (06:18)
--- NOTE | 2022-08-04 07:32 | PCM.PN.OB ---
Subjective Subjective Patient doing well without complaints. Tolerating PO. Ambulating and voiding without difficulty. feeding well. Denies chest pain, shortness of breath, calf pain/swelling, fevers, chills, lightheadedness. Objective Data Objective Data Vital Signs: Vital Signs Temp Pulse Resp BP Pulse Ox O2 Del Method 98.1 F 77 18 113/57 L 98 Room Air 08/04/22 02:05 08/04/22 04:56 08/04/22 02:05 08/04/22 04:56 08/03/22 20:25 08/03/22 20:25 Oxygen Delivery Method Room Air Weight: 204 lb Body Mass Index (BMI) 31.9 Intake & Output: Intake and Output for Last 24 Hours 08/02/22 08/03/22 08/04/22 23:59 23:59 23:59 Intake Total 250 / 250 Output Total 200 / 200 Balance 50 / 50 Lab / Micro Data Result Diagrams: 08/03/22 01:15 Labs: Laboratory Results - last 24 hr 08/03/22 16:10: Screen NEGATIVE, Baby's Blood Type AB POSITIVE, Baby's LUZ NEGATIVE ROS Constitutional Constitutional: Reports systems reviewed and no addt'l complaints, except as documented Cardiovascular Cardiovascular: Reports systems reviewed and no addt'l complaints, except as documented Respiratory/Chest Respiratory/Chest: Reports systems reviewed and no addt'l complaints, except as documented Gastrointestinal Gastrointestinal: Reports systems reviewed and no addt'l complaints, except as documented Physical Exam Const alert, oriented x3 and no apparent distress HEENT Head and Scalp: atraumatic Resp normal respiratory effort GI soft to palpation and non-tender Bimanual Exam - Vag & Uterus: uterus non-tender Uterus Palpation: uterus fundus firm (below Umbilicus) Assessment & Plan (1) Rh negative, antepartum: COMMENT: is Rh+, Rhogam @ 28 weeks and PRN bleeding (2) Vaginal delivery: COMMENT: SM IAL 39 boy Gabriel PLAN: Plan s/p PPD # 1 1. routine post delivery care 2. breast feeding- support given 3. rh negative- rhogam if needed 4. rubella immune
[2022-08-04] MEDS: Acetaminophen 500 MG Tablet 1000 MG PO (08:42)
== END 2022-08-04 13:00 | disposition home or self-care (01) | DRG 807 ==
LOC: WPOUT 01:08 → WP 02:40
PROVIDERS: Admitting Provider Obstetrics & Gynecology; PCP Family Medicine; Referring Provider Obstetrics & Gynecology; Visit Provider Obstetrics & Gynecology
DX: O70.1 Second degree perineal laceration during delivery (principal); Z37.0 Single live birth; O69.81X0 Labor and delivery complicated by cord around neck, without compression, not applicable or unspecified; Z67.91 Unspecified blood type, Rh negative; Z3A.39 39 weeks gestation of pregnancy
CPT/HCPCS: 59025; 59050; 85025; 85461; 86780; 86850; 86900; 86901; 99221; J7120; G0378; J2790

== ENCOUNTER → 2022-09-14 | Outpatient (CLI) | payer BC, SELFPAY ==
[2022-09-21 13:08] LABS: HPV APTIMA, High Risk Negative (Negative)
== END | disposition home or self-care (01) ==
LOC: LABSPEC 16:49
PROVIDERS: PCP Family Medicine; Referring Provider Obstetrics & Gynecology; Visit Provider Obstetrics & Gynecology
DX: Z12.4 Encounter for screening for malignant neoplasm of cervix (principal)
CPT/HCPCS: 87624; 88175; G0145

== ENCOUNTER 2022-12-24 11:18 | Emergency (ER) | payer BC, SELFPAY ==
[2022-12-24 11:19] VITALS: BP 129/77; PULSE 68; RESP 15; TEMP 36.7; O2SAT 100; BMI 28.1
--- NOTE | 2022-12-24 11:30 | RAD_ITS ---
INDICATION: injury EXAMINATION/TECHNIQUE: X-RAY - RIGHT XR Shoulder Min 2 Views 4 VIEWS COMPARISON: Prior studies dated: September 15 and 2019 FINDINGS: SOFT TISSUES: No soft tissue swelling or gas. No radiopaque foreign body. BONES/JOINTS: No acute fracture or subluxation.. Normal alignment. Preservation of the joint space.. There is a well-circumscribed sclerotic focus within the proximal right humerus may reflect a bone island or a nonossifying fibroma. RAD/Shoulder min 2 Views IMPRESSION: No acute osseous injury. Electronically Signed: Yuridia Jimenes MD at 12:45 EDT ,
--- NOTE | 2022-12-24 11:30 | RAD_ITS ---
INDICATION: injury EXAMINATION/TECHNIQUE: X-RAY - XR Chest 2 Views COMPARISON: Prior study dated: September 19, 2019 FINDINGS: LINES/DEVICES: None. LUNGS: No consolidation, edema or effusion. No pneumothorax. MEDIASTINUM AND CARDIOVASCULAR STRUCTURES: Cardiac silhouette not enlarged. Central airways and mediastinal contour are unremarkable. BONES AND SOFT TISSUES: Unremarkable. RAD/Chest PA and Lateral IMPRESSION: No radiographic evidence of acute cardiopulmonary disease. Electronically Signed: Yuridia Jimenes MD at 12:42 EDT ,
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
[2022-12-24] MEDS: Naproxen 500 MG Tablet PO (11:44)
[2022-12-24] MEDS: Lidocaine 5% Patch 1 PATCH TOPICAL (11:44)
== END 2022-12-24 13:40 | disposition home or self-care (01) ==
PROVIDERS: Emergency Provider Emergency Medicine; PCP Family Medicine; Visit Provider Emergency Medicine
DX: S40.011A Contusion of right shoulder, initial encounter (principal); S20.229A Contusion of unspecified back wall of thorax, initial encounter; Z79.3 Long term (current) use of hormonal contraceptives; W17.89XA Other fall from one level to another, initial encounter; Y93.89 Activity, other specified; Y92.89 Other specified places as the place of occurrence of the external cause
CPT/HCPCS: 71046; 73030; 99283

== ENCOUNTER 2023-06-21 10:30 | Outpatient (RCR) | payer BC, SELFPAY | END 2023-06-21 19:00 | disposition home or self-care (01) | LOC: PT 10:30 | PROVIDERS: PCP Family Medicine; Referring Provider Obstetrics & Gynecology; Visit Provider Obstetrics & Gynecology | DX: N94.89 Other specified conditions associated with female genital organs and menstrual cycle ==

== ENCOUNTER 2023-08-31 17:54 | Emergency (ER) | payer BC, SELFPAY ==
[2023-08-31 17:54] VITALS: BP 132/78; PULSE 67; RESP 18; TEMP 36.8; O2SAT 98; BMI 29.7
--- NOTE | 2023-08-31 18:23 | EX.ED.UPPERE ---
HPI History of Present Illness Chief Complaint: Bite Informant: patient Narrative Narrative: Patient presents to the ED for evaluation discussion of possible rabies vaccination. Bit by a neighbors dog earlier today. This is mild dog that got in her yard, she tried to pick it up bring it back to the neighbor. It bit her and walked back to the other yard. This has not happened in the past. Patient tetanus in the last 5 years. [facility], placing the Steri-Strips for the wound, Augmentin sent to her pharmacy. She states she went home discussed with family, rediscussion with the neighbors and she thought immunizations of the dog was up-to-date. They report it was not up-to-date when she got home. A family member had rabies issues with the [place] therefore she was concerned. Tetanus Immunization: <5 years [facility] Medical History Acute pharyngitis, unspecified Contact with and (suspected) exposure to other viral communicable diseases Contraceptive management History of miscarriage Rh negative state in antepartum period Uterine anomaly Vaginal delivery Home Medications 103-folic acid 400 mcg-omeg3 32.5 mg-dha-fish oil chew tablet 1 tab PO DAILY 06/17/20 [History Last Taken 01/18/21 08:00] Nexplanon 68 mg subdermal implant (etonogestrel) 68 mg subdermal ONCE #1 implant 09/21/22 [Clinic Last Taken Unknown] naproxen 500 mg tablet (Naprosyn) 500 mg PO BID PRN pain #20 tabs 12/24/22 [Rx Last Taken Unknown] amoxicillin 875 mg-potassium clavulanate 125 mg tablet 1 tab PO Q12H 10 days #20 tabs 08/31/23 [Rx Last Taken Unknown] Allergy/AdvReac Type Severity Reaction Status Date / Time No Known Allergies Allergy Verified 08/31/23 16:30 Family History Aunt Ovarian cancer Uterine cancer, Onset Age: 57 Maternal Aunt Surgical History History of lumpectomy S/P dilation and curettage Status post hysteroscopic surgical removal of uterine septum (~02/14/20) Social History adopted: No household members: spouse and children housing: house number of children: 2 current occupational status: employed 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 current occupational exposures/hazards: No history of recent travel: No sexually active: Yes Smoking Status: Never smoker alcohol intake: never details: not since substance use type: does not use well-balanced diet: daily or most days caffeine: Yes Type: tea Number of servings: 1 eating out: rarely or never what type of physical activity do you participate in: walking, bicycling, yoga and other details: volleyball frequency: 3-4 times per week awa/restoration: [employer]ist seatbelt use: always do you feel safe at home: Yes additional social history: - [employer] 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 [employer] ROS ROS ED Constitutional Constitutional ED: Denies chills, fever(s) or sweats Eyes Eyes: Denies change in vision ENT ENT ED: Denies dysphagia or sore throat Cardiovascular Cardiovascular: Denies chest pain, leg edema, palpitations or racing heartbeat Respiratory/Chest Respiratory/Chest: Denies cough, dyspnea or dyspnea on exertion Gastrointestinal Gastrointestinal: Denies abdominal pain, diarrhea, nausea or vomiting Genitourinary Genitourinary ED: Denies dysuria, hematuria or urinary frequency Musculoskeletal Musculoskeletal: Denies back pain, extremity pain or neck pain Integumentary Reports wounds and other; Denies rash Neurologic Neurologic: Denies headache(s), paresthesias or weakness EXAM Physical Exam Const Vital Signs: 08/31/23 17:54 Temperature 98.2 F Temperature Source Temporal Pulse Rate 67 Respiratory Rate 18 Blood Pressure 132/78 H Blood Pressure Mean 96 Pulse Ox 98 Oxygen Delivery Method Room Air Positive well nourished and well developed General Appearance ED: well developed and NAD HEENT Reports moist mucous membranes normocephalic and atraumatic Eyes PERRL, EOMs intact bilaterally and conjunctivae normal General Eye ED: Yes normal appearance of both eyes Neck no lymphadenopathy and supple General: Negative for tenderness Chest Wall Chest: Negative for tenderness Resp normal respiratory effort and normal air movement Effort and Inspection: symmetric chest movement; Negative for respiratory distress Cardio regular rate, regular rhythm and no murmurs Peripheral Pulses: pulses 2+ throughout GI normal to inspection, nondistended, normoactive bowel sounds and non-tender Palpation: Negative for guarding or rebound tenderness present Back/Spine no CVA tenderness and no thoracic nor lumbar tenderness Extremity normal to inspection General Extremety ED: Negative for edema or tenderness General Extremity: Negative for edema Neuro oriented x3 and no sensory deficits noted Sensorium / Orientation: awake and alert Skin Skin Narrative: Right hand: 2 cm laceration vertical laceration over the fourth metacarpal. Steri-Strips are present. No drainage or erythema. Full range of motion of the finger. MDM MDM MDM Narrative Medical decision making narrative: Interventions / MDM: Differential diagnosis: Dog bite right hand, hand laceration Diagnosis considered but do not suspect: N/A My EKG interpretation: N/A Imaging independently reviewed and interpreted by myself: N/A External documents reviewed: N/A Test considered but not ordered:N/A ED course: Patient nontoxic. Current Steri-Strips to her hand. Discussed with patient agree with Steri-Strips to avoid infection. Encouraged take and finish antibiotics to avoid infection. Discussed with her CDC guidelines with PET and provoked bite, no indications for rabies vaccination or immunoglobulin's. She is more reassured. Discussed the more concerns of infection to monitor for this and return precautions. All questions were answered. Re-evaluation: stable Disposition discussed with patient/family/significant other: Patient Case discussed with consulting clinician: N/A This note was generated with [employer] dictation software. It may contain incorrect words, spelling, and punctuation that were not noted in checking the note before signing. Discharge Plan Triage Chief Complaint: Bite ED Provider: Nino Mayorga Dx/Rx/DC Orders Clinical Impression: Dog bite of right hand without complication Instructions: ED Dog Bite Prescriptions: No Action Nexplanon 68 mg implant 68 mg subdermal ONCE Qty: 1 0RF amoxicillin-pot clavulanate 875-125 mg tablet 1 tab PO Q12H 10 Days Qty: 20 0RF PNV 960-tytpc-kevtx-3-fish oil 1 EACH tablet,chewable 1 tab PO DAILY naproxen [Naprosyn] 500 mg tablet 500 mg PO BID PRN (Reason: pain) Qty: 20 0RF Primary Care Provider: Christina Augustine Referrals: Christina Augustine MD [Primary Care Provider] - Activity Restrictions/Additional Instructions: No indication for rabies treatment as this was a provoked event. This is also pet of your neighbors. I would recommend you taking the antibiotic prescribed by the clinic to prevent infection. Disposition Disposition: Home, Self Care Discharge Date/Time: 08/31/23 18:40
== END 2023-08-31 18:40 | disposition home or self-care (01) ==
PROVIDERS: Emergency Provider Emergency Medicine; PCP Family Medicine; Visit Provider Emergency Medicine
DX: S61.451A Open bite of right hand, initial encounter (principal); W54.0XXA Bitten by dog, initial encounter; Y92.89 Other specified places as the place of occurrence of the external cause
CPT/HCPCS: 99283

== ENCOUNTER → 2023-12-12 | Outpatient (CLI) | payer BC, SELFPAY ==
--- NOTE | 2023-12-12 07:59 | US_ITS ---
INDICATION: irregular bleeding EXAMINATION: Ultrasound US Pelvis Non OB Complete With Transvaginal Imaging TECHNIQUE: Transabdominal and transvaginal pelvic ultrasound was performed. Grayscale, spectral waveform, and color flow Doppler evaluation of the adnexa. COMPARISON: None. FINDINGS: UTERUS: Retroverted and septate uterus. The uterus measures 7.6 cm in length. There is no uterine mass. The endometrial stripe measures 5 mm in AP diameter which is within normal limits. RIGHT OVARY: Measures 2.8 x 1.5 x 1.2 cm. Non-enlarged, normal echogenicity. There is normal arterial inflow and venous outflow present in the right ovary. LEFT OVARY: Measures 4.3 x 4.1 x 2.4 cm. Non-enlarged, normal echogenicity. There is normal arterial inflow and venous outflow present in the left ovary. FREE FLUID: None. US/Pelvic w/ Transvaginal IMPRESSION: Normal pelvic ultrasound. Electronically Signed: Colby Whitmore MD at 2:39 EDT ,
== END | disposition home or self-care (01) ==
PROVIDERS: PCP Family Medicine; Referring Provider Nurse Practitioner Family; Visit Provider Nurse Practitioner Family
DX: N92.6 Irregular menstruation, unspecified (principal)
CPT/HCPCS: 36415; 76830; 76856; 84439; 84443